=== PATIENT | female | born 2000 ===

== ENCOUNTER 2024-05-14 19:13 | Outpatient (REF) | payer OTHER, SELFPAY | END 2024-05-14 19:14 | disposition home or self-care (01) | LOC: LAB 19:13 | PROVIDERS: Visit Provider Obstetrics & Gynecology | DX: R87.610 Atypical squamous cells of undetermined significance on cytologic smear of cervix (ASC-US) (principal) | CPT/HCPCS: 88175 ==

== ENCOUNTER 2025-05-15 12:33 | Outpatient (REF) | payer OTHER, SELFPAY ==
--- OUTSIDE RECORDS SUMMARY | 2025-05-01 16:00 | XMS_ITS | Encounter Summary ---
Author Organization [facility] Address [address] [place] [address] Care Team Providers Care Superintendent Generating Plant Name Role Phone Ly Martin MD Primary Care Provider [phone] Encounter Details Date Type Department Care Team (Late st Contact Info) Description 05/01/2025 4:00 PM EDT Office Visit T[facility] 112 [facility] [address] [place] [address] Belkys Raymond, JEWEL GRINDER 112 [facility] 110 [place] [address] Attention deficit hyperactivity disorder (ADHD), combined type Social History Tobacco Use Types Packs/Day Years Used Date Smoking Tobacco: Never Smokeless Tobacco: Never Tobacco Cessation:Counseling Given: Yes Comments:Never used Alcohol Use Standard Drinks/Week Comments Yes 0 (1 standard drink = 0.6 oz pur e alcohol) Once a month or less socially B1300 Health Literacy Answer Date Recor ded How often do you need to hav e someone help you when you read instructions, pamphlets, or other written material from your doctor or pharmacy? Never 12/17/2024 Humiliation, Afraid, Rape, and Kick questionnair e Answer Date Recorded Within the last year, have y ou been afraid of your partner or ex-partner? No 09/12/2023 Within the last year, have y ou been humiliated or emotionally abused in other ways by your partner or ex-partner? No Within the last year, have y ou been kicked, hit, slapped, or otherwise physically hurt by your partner or ex-partner? No 09/12/2023 Within the last year, have y ou been raped or forced to have any kind of sexual activity by your partner or ex-partner? No 09/12/2023 Social Connection and Isolat ion Panel [NHANES] Answer Date Recorded In a typical week, how many times do you talk on the phone with family, friends, or neighbors? More than three times a week 12/17/2024 How often do you get togethe r with friends or relatives? Twice a week 12/17/2024 How often do you attend chur or synagogue services? Never 12/17/2024 Do you belong to any clubs o r organizations such as judaism groups, unions, fraternal or athletic groups, or school groups? No 12/17/2024 How often do you attend meet ings of the clubs or organizations you belong to? Never 12/17/2024 Are you , , di vorced, , never , or living with a partner? Living with partner 12/17/2024 AUDIT-C Answer Date Recorded Q1: How often do you have a drink containing alc ohol? Monthly or less 12/17/2024 Q2: How many drinks containi ng alcohol do you have on a typical day when you are drinking? 1 or 2 12/17/2024 Q3: How often do you have si x or more drinks on one occasion? Never 12/17/2024 Overall Financial Resource Strain (CARDIA) Answe r Date Recorded How hard is it for you to pa y for the very basics like food, housing, medical care, and heating? Not very hard 12/17/2024 PHQ-2 Answer Date Recorded Patient Health Questionnaire-2 Score 0 05/01/2025 [facility] [place] of Occupat ional Health - Occupational Stress Questionnaire Answer Date Recorded Do you feel stress - tense, restless, nervous, or anxious, or unable to sleep at night because your mind is troubled all the time - these days? Only a little 12/17/2024 Exercise Vital Sign Answer Date Recorde d On average, how many days pe r week do you engage in moderate to strenuous exercise (like a brisk walk)? 3 days 12/17/2024 On average, how many minutes do you engage in exercise at this level? 30 min 12/17/2024 Hunger Vital Sign Answer Date Recorded Within the past 12 months, y ou worried that your food would run out before you got the money to buy more. Sometimes true Within the past 12 months, t he food you bought just didn't last and you didn't have money to get more. Never true PRAPARE - Transportation Answer Date Re corded In the past 12 months, has l ack of transportation kept you from medical appointments or from getting medications? No 11/30 In the past 12 months, has l ack of transportation kept you from meetings, work, or from getting things needed for daily living? No 12/17/2024 Housing Stability Vital Sign Answer Keo e Recorded In the last 12 months, was t here a time when you were not able to pay the mortgage or rent on time? No 09/12/2023 In the last 12 months, how many places have you lived? 1 09/12/2023 In the last 12 months, was t here a time when you did not have a steady place to sleep or slept in a group home (including now)? No 09/12/2023 Housing Stability Vital Sign Answer Keo e Recorded In the last 12 months, was t here a time when you were not able to pay the mortgage or rent on time? No 12/17/2024 In the past 12 months, how m any times have you moved where you were living? 0 12/17/2024 At any time in the past 12 m [facility], were you homeless or living in a group home (including now)? No 12/17/2024 Comments Unknown Sex and Gender Information Value Date Recorded Sex Assigned at Not on file Legal Sex Female 7:37 PM EDT Gender Identity Female 04/26/2023 5:34 PM EDT Sexual Orientation Not on file documented as of this encounter Last Filed Vital Signs Vital Sign Reading Time Taken Comments Blood Pressure 120/72 05/01/2025 3:50 PM EDT Pulse 78 05/01/2025 3:50 PM EDT Temperature - - Respiratory Rate 16 05/01/2025 3:50 PM EDT Oxygen Saturation 99% 05/01/2025 3:50 PM EDT Inhaled Oxygen Concentration - - Weight 84.8 kg (187 lb) 05/01/2025 3:50 PM EDT Height 172.7 cm (5' 8 ) 05/01/2025 3:50 PM EDT Body Mass Index 28.43 05/01/2025 3:50 PM EDT documented in this encounter Functional Status * Over the past 2 weeks, how often have you been bothered by any of the following problems? Question Answer Date of Assessment Author Little interest or pleasure in doing things Not at all 05/01/2025 3:46 PM EDT DI DAVILA Feeling down, depressed, or hopeless Not at all 04/03 3:46 PM EDT DI DAVILA Patient Health Questionnaire-2 Score 0 04/03 3:46 PM EDT DI DAVILA documented as of this encounter Progress Notes * Belkys Raymond NP - 05/01/2025 4:00 PM EDT Images from the original note were not included. Subjective Patient ID: Ying Islas is a 24 y.o. female who presents for No chief complaint on file.. Ying presents today for a follow for her ADHD. She has no concerns at this time. Depression Visit Type: follow-up Patient presents with the following symptoms: decreased concentration. Episode frequency: medication is not holding her until she gets her next dose. Severity: causing significant distress Sleep per night: 8 hours Sleep quality: good Nighttime awakenings: one to two Compliance with medications: 76-100% Over the past 2 weeks, how often have you been bothered by any of the following problems? Little interest or pleasure in doing things: Not at all Feeling down, depressed, or hopeless: Not at all Patient Health Questionnaire-2 Score: 0 Current Outpatient Medications on File Prior to Visit Medication Sig Dispense Refill adapalene (Differin) 0.3 % gel Apply topically at bedtime 45 g 11 albuterol HFA (Ventolin HFA) 90 mcg/act inhaler Inhale 2 puffs every 4 (four) hours if needed for wheezing 18 g 11 amphetamine-dextroamphetamine (Adderall) 20 MG tablet Take 1 tablet (20 mg) by mouth in the morningand 1 tablet (20 mg) before bedtime. 60 tablet 0 buPROPion XL (Wellbutrin XL) 300 MG 24 hr tablet Take 1 tablet (300 mg) by mouth in the morning. Donot crush, chew, or split. 90 tablet 3 ferrous sulfate 325 (65 Fe) MG EC tablet Take 1 tablet (325 mg) by mouth in the morning and 1 tablet (325 mg) at noon and 1 tablet (325 mg) in the evening. Take with meals. Do not crush, chew, or split.. 90 tablet 2 hydrOXYzine HCl (Atarax) 25 MG tablet Take 1 tablet (25 mg) by mouth 3 (three) times a day as needed for anxiety 90 tablet 0 norelgestromin-ethinyl estradiol (Ortho-Evra) 150-35 MCG/24HR APPLY 1 PATCH WEEKLY FOR 3 WEEKS THENREMOVE FOR 1 WEEK 3 patch 12 No current facility-administered medications on file prior to visit. I have reviewed and reconciled the history and medication list with the patient today. Allergies Allergen Reactions Fluconazole Rash Social History Tobacco Use Smoking status: Never Smokeless tobacco: Never Tobacco comments: Never used Vaping Use Vaping status: Never Used Substance Use Topics Alcohol use: Yes Comment: Once a month or less socially Drug use: Not Currently Types: Marijuana Comment: 1/2 a year socially Family History Problem Relation Name Age of Onset Diabetes Father Ibrahima Islas Past Medical History: Diagnosis Date ADHD (attention deficit hyperactivity disorder) Allergic 2014 Anxiety 2016 Depression 2016 Menstrual migraine Past Surgical History: Procedure Laterality Date TYMPANOSTOMY TUBE PLACEMENT at age 1 Visit Vitals Smoking Status Never Review of Systems Constitutional: Negative. HENT: Negative. Eyes: Negative. Respiratory: Negative. Cardiovascular: Negative. Gastrointestinal: Negative. Genitourinary: Negative. Musculoskeletal: Negative. Skin: Negative. Neurological: Negative. Psychiatric/Behavioral: Positive for decreased concentration and depression. Decreased concentration a few hours prior to next dose All other systems reviewed and are negative. Endocrine: Negative. Objective Physical Exam Vitals reviewed. Constitutional: Appearance: Normal appearance. HENT: Head: Normocephalic. Nose: Nose normal. Mouth/Throat: Mouth: Mucous membranes are moist. Pharynx: Oropharynx is clear. Eyes: Conjunctiva/sclera: Conjunctivae normal. Cardiovascular: Rate and Rhythm: Normal rate and regular rhythm. Abdominal: General: Bowel sounds are normal. Palpations: Abdomen is soft. Skin: General: Skin is warm and dry. Neurological: General: No focal deficit present. Mental Status: She is alert and oriented to person, place, and time. Psychiatric: Mood and Affect: Mood normal. Behavior: Behavior normal. Thought Content: Thought content normal. Judgment: Judgment normal. Assessment/Plan Diagnoses and all orders for this visit: Attention deficit hyperactivity disorder (ADHD), combined type - amphetamine-dextroamphetamine (Adderall) 10 MG tablet; Take 1 tablet (10 mg) by mouth Daily Take with the 20mg tab in the am for a total of 30mg in am - amphetamine-dextroamphetamine (Adderall) 20 MG tablet; Take 1 tablet (20 mg) by mouth in the morning and 1 tablet (20 mg) before bedtime. Continue with current drug therapy. Call office for worsening of symptoms. Per [facility] regulations, follow ups have to occur every 3 months. You verbalized understanding of these rules in order for us tocontinue filling medications. OARRS/PDMP reviewed without concern. Safe filling and storage of medications discussed with patient. Controlled status of medication discussed with patient. No follow-ups on file. documented in this encounter Plan of Treatment Upcoming Encounters Date Type Department Care Team (Late st Contact Info) Description 05/19/2026 9:00 AM EDT Procedure Visit [facility] [address] [facility] [place] [address] Toni Burris DO [address] [facility] [place] [address] documented as of this encounter Visit Diagnoses Diagnosis Attention deficit hyperactivity disorder (ADHD), combined type documented in this encounter Care Teams Superintendent Generating Plant Relationship Specialty Start Date End Date Ly Martin MD [address] [facility] [address] [place] [address] PCP - General Family Medicine 02/07/23 documented as of this encounter
--- OUTSIDE RECORDS SUMMARY | 2025-05-15 09:00 | XMS_ITS | Encounter Summary ---
Author Organization [facility] Address [address] [place] [address] Care Team Providers Care Bleacher Lard Name Role Phone Ly Martin MD Primary Care Provider [phone] Reason for Visit * Reason Comments Well Women Visit Encounter Details Date Type Department Care Team (Late st Contact Info) Description 05/15/2025 9:00 AM EDT Office Visit [facility] [address] [facility] [place] [address] Toni Burris DO [address] [facility] [address] [place], [place] [id number] Well woman exam with routine gynecological exam; Atypical squamous cell changes of undetermined significance (ASCUS) on cervical cytology with negative high risk human papilloma virus (HPV) test result Social History Tobacco Use Types Packs/Day Years Used Date Smoking Tobacco: Never Smokeless Tobacco: Never Comments:Never used Alcohol Use Standard Drinks/Week Comments [...] How often do you attend chur or sabianist services? Never 12/17/2024 Do you belong to any clubs o r organizations such as shinto groups, unions, fraternal or athletic groups, or [...] Recorded Patient Health Questionnaire-2 Score 0 05/01/2025 [facility] of Occupat ional Health - Occupational Stress [...] place to sleep or slept in a senior care (including now)? No 09/12/2023 Housing Stability Vital Sign Answer Keo e Recorded In the last 12 months, was t here a time when you were not able to pay the mortgage or rent on time? No 12/17/2024 In the past 12 months, how m any times have you moved where you were living? 0 12/17/2024 At any time in the past 12 m [facility], were you homeless or living in a senior care (including now)? No 12/17/2024 Comments Unknown Sex and Gender Information Value Date Recorded Sex Assigned at Not on file Legal Sex Female 7:37 PM EDT Gender Identity Female 04/26/2023 5:34 PM EDT Sexual Orientation Not on file documented as of this encounter Last Filed Vital Signs Vital Sign Reading Time Taken Comments Blood Pressure 130/80 05/15/2025 9:08 AM EDT Pulse - - Temperature - - Respiratory Rate - - Oxygen Saturation - - Inhaled Oxygen Concentration - - Weight 84.6 kg (186 lb 6.4 oz) 05/15/2025 9:08 A M EDT Height - - Body Mass Index 28.34 05/01/2025 3:50 PM EDT documented in this encounter Progress Notes * Britt Modi LPN - 05/15/2025 9:00 AM EDT Reason for Appointment: Patient ID: Ying Islas is a 24 y.o. female who presents for [facility] Women Visit Patient presents today for Annual Exam. MEDICATIONS Current Outpatient Medications Medication Instructions adapalene (Differin) 0.3 % gel Topical, Nightly albuterol HFA (Ventolin HFA) 90 mcg/act inhaler 2 puffs, Inhalation, Every 4 hours PRN amphetamine-dextroamphetamine (Adderall) 10 MG tablet 10 mg, Oral, Daily, Take with the 20mg tab inthe am for a total of 30mg in am amphetamine-dextroamphetamine (Adderall) 20 MG tablet 20 mg, Oral, 2 times daily amphetamine-dextroamphetamine (Adderall) 20 MG tablet 20 mg, Oral, 2 times daily buPROPion XL (WELLBUTRIN XL) 300 mg, Oral, Every morning, Do not crush, chew, or split. ferrous sulfate 325 mg, Oral, 3 times daily with meals, Do not crush, chew, or split. hydrOXYzine HCl (ATARAX) 25 mg, Oral, 3 times daily PRN ALLERGIES Allergies Allergen Reactions Fluconazole Rash PROBLEMS Active Ambulatory Problems Diagnosis Date Noted Adjustment disorder with anxiety 04/24/2023 Attention deficit hyperactivity disorder 04/24/2023 Intractable menstrual migraine without status migrainosus 04/24/2023 Major depressive disorder, single episode, mild 04/24/2023 Resolved Ambulatory Problems Diagnosis Date Noted No Resolved Ambulatory Problems Past Medical History: Diagnosis Date ADHD (attention deficit hyperactivity disorder) Allergic 2013 Anxiety 2016 Depression 2016 Menstrual migraine HISTORY PAST MEDICAL HISTORY SOCIAL HISTORY Past Medical History: Diagnosis Date ADHD (attention deficit hyperactivity disorder) Allergic 2013 Anxiety 2016 Depression 2016 Menstrual migraine Social History Tobacco Use Smoking status: Never Smokeless tobacco: Never Tobacco comments: Never used Vaping Use Vaping status: Never Used Substance Use Topics Alcohol use: Yes Comment: Once a month or less socially Drug use: Not Currently Types: Marijuana Comment: 1/2 a year socially FAMILY HISTORY Family History Problem Relation Name Age of Onset Diabetes Father Ibrahima Islas SURGICAL HISTORY Past Surgical History: Procedure Laterality Date TYMPANOSTOMY TUBE PLACEMENT at age 1 REVIEW OF SYSTEMS Review of Systems: Review of Systems Constitutional: Negative. HENT: Negative. Eyes: Negative. Respiratory: Negative. Cardiovascular: Negative. Gastrointestinal: Negative. Genitourinary: Negative. Musculoskeletal: Negative. Skin: Negative. Neurological: Negative. All other systems reviewed and are negative. Hematological: Negative. Endocrine: Negative. Allergic/Immunologic: Negative. OBJECTIVE Objective: Physical Exam Constitutional: Appearance: Normal appearance. She is well-developed. Genitourinary: Vulva normal. Cardiovascular: Rate and Rhythm: Normal rate and regular rhythm. Pulmonary: Effort: Pulmonary effort is normal. Breath sounds: Normal breath sounds. Abdominal: General: Bowel sounds are normal. There is no distension. Palpations: Abdomen is soft. Tenderness: There is no abdominal tenderness. There is no guarding or rebound. Musculoskeletal: General: No swelling. Normal range of motion. Right lower leg: No edema. Left lower leg: No edema. Neurological: Mental Status: She is alert and oriented to person, place, and time. Skin: General: Skin is warm and dry. Psychiatric: Mood and Affect: Mood normal. Behavior: Behavior normal. Vitals and nursing note reviewed. Exam conducted with a software specialist present. Vitals: Estimated body mass index is 28.34 kg/m?? as calculated from the following: Height as of 05/01/25: 5' 8 . Weight as of this encounter: 186 lb 6.4 oz. BP: 130/80 Patient's last menstrual period was 05/11/2025. ASSESSMENT & PLAN ICD-10-CM 1. Well woman exam with routine gynecological exam Z01.419 Pap Smear Annual Exam: Patient presents today for an annual exam. Patient states she is doing well and has no complaints. Pap was obtained without difficulty. Patient has history of abnormal Pap Smears. Follow Up: Patient is to return in one year for annual unless needed otherwise. Documented by Britt Modi LPN on behalf of: Toni Burris DO documented in this encounter Plan of Treatment Upcoming Encounters Date Type Department Care Team (Late st Contact Info) Description 05/19/2026 9:00 AM EDT Procedure Visit [facility] [address] [facility] [place] [address] Toni Burris DO [address] [place] [address] Scheduled Orders Name Type Priority Associated Diagnoses Orde r Schedule Pap Smear Pathology and Cytology Routine Well woman exam with routine gynecological exam Ordered: 05/15/2025 documented as of this encounter Visit Diagnoses Diagnosis Well woman exam with routine gynecological exam Routine gynecological examination Atypical squamous cell changes of undetermined significance (ASCUS) on cervical cytology with negative high risk human papilloma virus (HPV) test result documented in this encounter Care Teams Bleacher Lard Relationship Specialty Start Date End Date Ly Martin MD [address] [facility] 110 [place] [address] PCP - General Family Medicine 02/07/23 documented as of this encounter
--- OUTSIDE RECORDS SUMMARY | 2025-05-15 12:35 | XMS_ITS | Encounter Summary ---
Author Organization [facility] Address [address] [place] [address] Care Team Providers Care Upholstered Goods Crafter Name Role Phone Ly Martin MD Primary Care Provider Encounter Details Date Type Department Care Team (Late st Contact Info) Description 05/01/2025 Bamboo flowsheet [facility] [address] [facility] 110 [place] [address] Belkys Raymond, ART MUSEUM DOCENT [address] [facility] 110 [place] [address] Social History Tobacco Use Types Packs/Day Years [...] 12/17/2024 How often do you attend chur ch or mosque services? Never 12/17/2024 Do you belong to any clubs o r organizations such as buddhism groups, unions, fraternal or athletic groups, or [...] Recorded Patient Health Questionnaire-2 Score 0 05/01/2025 [facility] of Occupat ional Health - Occupational Stress [...] place to sleep or slept in a [place] care facility (including now)? No 09/12/2023 Housing Stability Vital Sign Answer Keo e Recorded In the last 12 months, was t here a time when you were not able to pay the mortgage or rent on time? No 12/17/2024 In the past 12 months, how m any times have you moved where you were living? 0 12/17/2024 At any time in the past 12 m [facility], were you homeless or living in a [place] health care facility (including now)? No 12/17/2024 Comments Unknown Sex and Gender Information Value Date Recorded Sex Assigned at Not on file Legal Sex Female 7:37 PM EDT Gender Identity Female 04/26/2023 5:34 PM EDT Sexual Orientation Not on file documented as of this encounter Plan of Treatment Upcoming Encounters Date Type Department Care Team (Late st Contact Info) Description 05/19/2026 9:00 AM EDT Procedure Visit [facility] [address] [place] [id number] Toni Burris DO [address] [place] [address] documented as of this encounter Visit Diagnoses Not on filedocumented in this encounter Care Teams Upholstered Goods Crafter Relationship Specialty Start Date End Date Ly Martin MD [address] [facility] 110 [place] [address] PCP - General Family Medicine 02/07/23 documented as of this encounter
--- OUTSIDE RECORDS SUMMARY | 2025-05-15 12:35 | XMS_ITS | Encounter Summary ---
Author Organization [facility] Address [address] [facility] [place] [address] Care Team Providers Care Check Airman Name Role Phone Ly Martin MD Primary Care Provider [phone] Encounter Details Date Type Department Care Team (Late st Contact Info) Description 05/15/2025 Bamboo flowsheet [facility] [address] [facility] [place] [address] Toni Burris DO [address] [facility] [address] [place], [facility] Social History Tobacco Use Types Packs/Day Years [...] How often do you attend chur or cheondoism services? Never 12/17/2024 Do you belong to any clubs o r organizations such as worship groups, unions, fraAurochs Brewing or athletic groups, or school groups? No [...] Recorded Patient Health Questionnaire-2 Score 0 05/01/2025 [facility] - Occupational Stress Questionnaire Answer [...] place to sleep or slept in a care home (including now)? No 09/12/2023 Housing Stability [...] any time in the past 12 m [facility], were you homeless or living in a care home (including now)? No 12/17/2024 Comments Unknown [...] EDT Procedure Visit [facility] [address] [place] [address] Toni Burris DO [address] [place] [address] documented as of this encounter Visit Diagnoses Not on filedocumented in this encounter Care Teams Check Airman Relationship Specialty Start Date End Date Ly Martin MD 112 [facility] 110 [place] [address] PCP - General Family Medicine 02/07/23 documented as of this encounter
--- OUTSIDE RECORDS SUMMARY | 2025-05-15 12:35 | XMS_ITS | Encounter Summary ---
Author Organization [facility] Address [address] [place] [address] Care Team Providers Care Auto Apprentice Mechanic Name Role Phone Ly Martin MD Primary Care Provider [phone] Encounter Details Date Type Department Care Team (Late st Contact Info) Description 12/07/2023 Abstract [facility] [address] [facility] 110 [place] [address] Ly Martin MD 112 [facility] 110 [place] [address] Social History Tobacco Use Types Packs/Day Years Used Date Smoking Tobacco: Never Smokeless Tobacco: Never Alcohol Use Standard Drinks/Week Comments Never 0 (1 standard drink = 0.6 oz pur e alcohol) Humiliation, Afraid, Rape, and Kick questionnair e [...] neighbors? More than three times a week 09/12/2023 How often do you get togethe r with friends or relatives? Once a week 09/12/2023 Attends Amish Services Not on file 09/12 Do you belong to any clubs o r organizations such as cheondoism groups, unions, fraternal or athletic groups, or school groups? No 09/12/2023 How often do you attend meet ings of the clubs or organizations you belong to? Never 09/12/2023 Are you , , di vorced, , never , or living with a partner? Never 09/12/2023 AUDIT-C Answer Date Recorded Q1: How often do you have a drink containing alc ohol? Monthly or less 09/12/2023 Q2: How many drinks containi ng alcohol do you have on a typical day when you are drinking? 1 or 2 09/12/2023 Q3: How often do you have si x or more drinks on one occasion? Never 09/12/2023 Overall Financial Resource Strain (CARDIA) Answe r Date Recorded How hard is it for you to pa y for the very basics like food, housing, medical care, and heating? Not very hard 09/12/2023 PHQ-2 Answer Date Recorded Patient Health Questionnaire-2 Score 2 04/24/2023 [facility] - [facility]ational Stress Questionnaire Answer Date Recorded Do you feel stress - tense, restless, nervous, or anxious, or unable to sleep at night because your mind is troubled all the time - these days? Very much 09/12/2023 Exercise Vital Sign Answer Date Recorde d On average, how many days pe r week do you engage in moderate to strenuous exercise (like a brisk walk)? 1 day 09/12/2023 On average, how many minutes do you engage in exercise at this level? 50 min 09/12/2023 Hunger Vital Sign Answer Date Recorded Within the past 12 months, y ou worried that your food would run out before you got the money to buy more. Never true 09/12/20 23 Within the past 12 months, t he food you bought just didn't last and you didn't have money to get more. Never true 09/12/2023 PRAPARE - Transportation Answer Date Re corded In the past 12 months, has l ack of transportation kept you from medical appointments or from getting medications? No 09/01 In the past 12 months, has l ack of transportation kept you from meetings, work, or from getting things needed for daily living? No 09/12/2023 Housing Stability Vital Sign Answer [...] place to sleep or slept in a nursing home (including now)? No 09/12/2023 Comments Unknown Sex and Gender Information Value Date Recorded Sex Assigned at Not on file Legal Sex Female 7:37 PM EDT Gender Identity Female 04/26/2023 5:34 PM EDT Sexual Orientation Not on file documented as of this encounter Plan of Treatment Upcoming Encounters Date Type Department Care Team (Late st Contact Info) Description 05/19/2026 9:00 AM EDT Procedure Visit [facility] [address] [place] [address] Toni Burris DO [address] [facility] [place] [address] documented as of this encounter Visit Diagnoses Not on filedocumented in this encounter Care Teams Auto Apprentice Mechanic Relationship Specialty Start Date End Date Ly Martin MD [address] [facility] 110 [place] [address] PCP - General Family Medicine 02/07/23 documented as of this encounter
--- OUTSIDE RECORDS SUMMARY | 2025-05-15 12:35 | XMS_ITS | Clinical Summary ---
Author Organization [facility] Address [address] [place] [address] Care Team Providers Care Motor Grader Operator Name Role Phone Ly Martin MD Primary Care Provider [phone] Allergies Active Allergy Reactions Criticality Noted Date Comments Fluconazole Rash Low 04/24/2023 Medications ferrous sulfate 325 (65 Fe) MG EC tabletIndication s:Screening for lipid disorders Take 1 tablet (325 mg) by mouth in the morning and 1 tablet (325 mg) at noon and 1 tablet (325 mg) in the evening. Take with meals. Do not crush, chew, or split.. 90 tablet 2 12/04/19 24 Active hydrOXYzine HCl (Atarax) 25 MG tabletIndication s:Adjustment disorder with anxiety Take 1 tablet (25 mg) by mouth 3 (three) times a day as needed for anxiety 90 tablet 11/01/19 25 Active adapalene (Differin) 0.3 % gelIndications:A cne vulgaris Apply topically at bedtime 45 g 11 11/20/19 25 026 Active albuterol HFA (Ventolin HFA) 90 mcg/act inhalerIndicatio ns:Exercise-vani fidel asthma (HCC) Inhale 2 puffs every 4 (four) hours if needed for wheezing 18 g 11 12/13/19 25 026 Active buPROPion XL (Wellbutrin XL) 300 MG 24 hr tabletIndication s:Major depressive disorder, single episode, mild Take 1 tablet (300 mg) by mouth in the morning. Do not crush, chew, or split. 90 tablet 3 03/17/20 25 026 Active amphetamine-dext roamphetamine (Adderall) 20 MG tabletIndication s:Attention deficit hyperactivity disorder (ADHD), combined type Take 1 tablet (20 mg) by mouth in the morning and 1 tablet (20 mg) before bedtime. 60 tablet 05/02/20 25 025 Active amphetamine-dext roamphetamine (Adderall) 10 MG tabletIndication s:Attention deficit hyperactivity disorder (ADHD), combined type Take 1 tablet (10 mg) by mouth Daily Take with the 20mg tab in the am for a total of 30mg in am 30 tablet 05/01/20 25 025 Active amphetamine-dext roamphetamine (Adderall) 20 MG tabletIndication s:Attention deficit hyperactivity disorder (ADHD), combined type Take 1 tablet (20 mg) by mouth in the morning and 1 tablet (20 mg) before bedtime. 60 tablet 05/01/20 25 025 Active norelgestromin-e thinyl estradiol (Ortho-Evra) 150-35 MCG/24HRIndicati ons: control counseling APPLY 1 PATCH WEEKLY FOR 3 WEEKS THEN REMOVE FOR 1 WEEK 3 patch 12 12/26/19 25 025 Discontinued amphetamine-dext roamphetamine (Adderall) 20 MG tabletIndication s:Attention deficit hyperactivity disorder (ADHD), combined type Take 1 tablet (20 mg) by mouth in the morning and 1 tablet (20 mg) before bedtime. 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 04/24/2023 Major depressive disorder, single episode, mild 04/24/2023 Assessment & Plan (02/05/2024 3:13 PM EDT): Decrease to 50mg every days for 7 days, then every other 3-4 doses Encounters Date Type Department Care Team Description 05/15/2025 9:00 AM EDT Office Visit [facility] [address] [place] [address] Toni Burris DO Well woman exam with routine gynecological exam; Atypical squamous cell changes of undetermined significance (ASCUS) on cervical cytology with negative high risk human papilloma virus (HPV) test result 05/15/2025 Bamboo flowsheet [facility] [address] [place] [address] Toni Burris DO 05/10/2025 Travel 05/01/2025 4:00 PM EDT Office Visit [facility] [address] [place] [address] [place] [address] Belkys Raymond, SENIOR PROCESS ANALYST Attention deficit hyperactivity disorder (ADHD), combined type 05/01/2025 Refill [facility] [address] [place] [address] [place] [address] Belkys Raymond, SENIOR PROCESS ANALYST Attention deficit hyperactivity disorder (ADHD), combined type 05/01/2025 Bamboo flowsheet [facility] [address] [place] [address] [place] [address] Belkys Raymond, SENIOR PROCESS ANALYST 05/01/2025 Travel 04/03/2025 Refill [facility] [address] [place] [address] [place] [address] Julia Dominguez, PA Attention deficit hyperactivity disorder (ADHD), combined type 03/17/2025 Orders Only [facility] [facility] [address] [place] [address] [place] [address] Belkys Raymond, SENIOR PROCESS ANALYST Major depressive disorder, single episode, mild (Primary Dx) 03/06/2025 Refill [facility] [facility] [address] [place] [address] [place] [address] Belkys Raymond, SENIOR PROCESS ANALYST Attention deficit hyperactivity disorder (ADHD), combined type from Last 3 Months Immunizations Immunization Administration Dates Next Due DTaP 06/16/2004, 0,1999,08/16 DTaP, Unspecified 09/18/2001 Hep B, Adolescent or Pediatric 06/23/2000,1999 Hep B, adult 05/19/2017 HiB, unspecified 01/17/2000,1999, 9 Hib / Hep B 09/18/2001 IPV 06/16/2004, 0,1999,08/16 Influenza, Injectable, MDCK, preservative free 10/13/2024 Influenza, injectable, MDCK, preservative free, quadrivalent 10/01/2021 Edwige SARS-CoV-2 02/04/2021 MMR 06/16/2004,08/07/2000 Meningococcal MCV4O 05/19/2017 Pfizer Purple Cap SARS-CoV-2 Vaccination 10/14/2021 Pneumococcal Conjugate PCV 7 08/07/2000,06/22/20 00 Varicella 06/22/2000 Family History Medical History Relation Name Comments Diabetes Father Ibrahima Islas Relation Name Status Comments Father Ibrahima Islas Alive Mother Alive Social History Tobacco Use Types Packs/Day Years [...] How often do you attend chur or jew services? Never 12/17/2024 Do you belong to any clubs o r organizations such as yazidism groups, unions, fraternal or athletic groups, or [...] Recorded Patient Health Questionnaire-2 Score 0 05/01/2025 [facility] [place] of Occupat ional Health - Occupational Stress [...] to sleep or slept in a senior living (including now)? No 09/12/2023 Housing Stability Vital Sign Answer Keo e Recorded In the last 12 months, was t here a time when you were not able to pay the mortgage or rent on time? No 12/17/2024 In the past 12 months, how m any times have you moved where you were living? 0 12/17/2024 At any time in the past 12 m [facility], were you homeless or living in a senior living (including now)? No 12/17/2024 Comments Unknown Sex and Gender Information Value Date Recorded Sex Assigned at Not on file Legal Sex Female 7:37 PM EDT Gender Identity Female 04/26/2023 5:34 PM EDT Sexual Orientation Not on file Last Filed Vital Signs Vital Sign Reading Time Taken Comments Blood Pressure 130/80 05/15/2025 9:08 AM EDT Pulse 78 05/01/2025 3:50 PM EDT Temperature - - Respiratory Rate 16 05/01/2025 3:50 PM EDT Oxygen Saturation 99% 05/01/2025 3:50 PM EDT Inhaled Oxygen Concentration - - Weight 84.6 kg (186 lb 6.4 oz) 05/15/2025 9:08 A M EDT Height 172.7 cm (5' 8 ) 05/01/2025 3:50 PM EDT Body Mass Index 28.34 05/01/2025 3:50 PM EDT Plan of Treatment Upcoming Encounters Date Type Department Care Team (Late st Contact Info) Description 05/19/2026 9:00 AM EDT Procedure Visit [facility] [address] [facility] [place] [address] Toni Burris DO [address] [facility] [place] [address] Health Maintenance Due Date Last Done Comments Influenza Vaccine (#1) 2025 10/13/2024, 2020 Insurance [employer] Care Teams Motor Grader Operator Relationship Specialty Start Date End Date Ly Martin MD 112 [facility] 110 [place], [place] [id number] PCP - General Family Medicine 02/07/23
--- OUTSIDE RECORDS SUMMARY | 2025-05-15 12:35 | XMS_ITS | Encounter Summary ---
Author Organization [facility] Address [address] [place] [address] Care Team Providers Care Manager Architectural Name Role Phone Ly Martin MD Primary Care Provider Encounter Details Date Type Department Care Team (Late st Contact Info) Description 05/22/2024 Orders Only [facility] [address] [facility] [address] Vale Chaudhary MA [address] [facility] [place] [address] Social History Tobacco Use Types Packs/Day Years Used Date Smoking Tobacco: Never Smokeless Tobacco: Never Comments:Never used Alcohol Use Standard Drinks/Week Comments Yes 0 (1 standard drink = 0.6 oz pur e alcohol) Once a month or less socially Humiliation, Afraid, Rape, and Kick questionnair e [...] or relatives? Once a week 09/12/2023 Attends Oriental Orthodox Services Not on file 09/12 Do you belong to any clubs o r organizations such as baptism groups, unions, fraternal or athletic groups, or [...] Recorded Patient Health Questionnaire-2 Score 2 04/24/2023 [facility] Questionnaire Answer Date [...] place to sleep or slept in a chcf (including now)? No 09/12/2023 Comments Unknown Sex [...] EDT Procedure Visit [facility] [address] [facility] [place] [phone] Toni Burris DO [address] [facility] [address] [place], [place] [id number] documented as of this encounter Procedures Procedure Name Priority Date/Time Associated Diagnosis Comments PAP SMEAR Routine 05/14/2024 12:00 AM EDT documented in this encounter Results * Pap Smear (05/14/2024 12:00 AM EDT) Swab Cervical swab / Unknown Toni Burris DO LAB CYTOLOGY ORDERABLES Final Re sult EXTERNAL LAB documented in this encounter Visit Diagnoses Not on filedocumented in this encounter Care Teams Manager Architectural Relationship Specialty Start Date End Date Ly Martin MD [address] [place] [address] 110 [place] [address] PCP - General Family Medicine 02/07/23 documented as of this encounter
--- OUTSIDE RECORDS SUMMARY | 2025-05-15 12:35 | XMS_ITS | Encounter Summary ---
Author Organization [facility] Address [address] [place] [address] Care Team Providers Care Wool Puller Name Role Phone Ly Martin MD Primary Care Provider [phone] Encounter Details Date Type Department Care Team (Latest Contact Info) Description 05/10/2025 Travel Social History Tobacco Use Types Packs/Day Years [...] often do you attend chur ch or alevism services? Never 12/17/2024 Do you belong to any clubs o r organizations such as restorationism groups, unions, fraternal or athletic groups, or [...] Recorded Patient Health Questionnaire-2 Score 0 05/01/2025 [facility] of Occupat ional Health - Occupational Stress [...] any time in the past 12 m [facility], were you homeless or living in a [...] EDT Procedure Visit [facility] [address] [facility] [place] [address] Toni Burris DO 102 [place] [address] documented as of this encounter Visit Diagnoses Not on filedocumented in this encounter Care Teams Wool Puller Relationship Specialty Start Date End Date Ly Martin MD [address] [address] PCP - General Family Medicine 02/07/23 documented as of this encounter
--- OUTSIDE RECORDS SUMMARY | 2025-05-15 12:35 | XMS_ITS | Encounter Summary ---
Author Organization [facility] Address [address] [place] [address] Care Team Providers Care Captain Assistant Name Role Phone Ly Martin MD Primary Care Provider [phone] Encounter Details Date Type Department Care Team (Late st Contact Info) Description 12/18/2024 Abstract [facility] [address] [facility] 110 [place] [address] Ly Martin MD 112 [facility] 110 [place] [address] Social History Tobacco Use Types Packs/Day Years [...] often do you attend chur ch or yarsani services? Never 12/17/2024 Do you belong to any clubs o r organizations such as christianity groups, unions, fraternal or athletic groups, or [...] Recorded Patient Health Questionnaire-2 Score 2 04/24/2023 [facility] of Occupat ional Health - Occupational Stress [...] place to sleep or slept in a fdc (including now)? No 09/12/2023 Housing Stability Vital Sign Answer Keo e Recorded In the last 12 months, was t here a time when you were not able to pay the mortgage or rent on time? No 12/17/2024 In the past 12 months, how m any times have you moved where you were living? 0 12/17/2024 At any time in the past 12 m [facility], were you homeless or living in a fdc (including now)? No 12/17/2024 Comments Unknown Sex [...] EDT Procedure Visit [facility] [address] [facility] [place] [phone] Toni Burris DO [address] [facility] [place] [address] documented as of this encounter Visit Diagnoses Not on filedocumented in this encounter Care Teams Captain Assistant Relationship Specialty Start Date End Date Ly Martin MD 112 [facility] 110 [place] [address] PCP - General Family Medicine 02/07/23 documented as of this encounter
--- OUTSIDE RECORDS SUMMARY | 2025-05-15 12:35 | XMS_ITS | Encounter Summary ---
Author Organization [facility] Address [address] [place] [address] Care Team Providers Care Automobile Service Station Mechanic Name Role Phone Ly Martin MD Primary Care Provider [phone] Reason for Visit * Reason Onset Date Comments Med Refill 05/01/2025 Encounter Details Date Type Department Care Team (Late st Contact Info) Description 05/01/2025 Refill [facility] [address] [facility] 110 [place] [address] Belkys Raymond, TRACTOR DRILL OPERATOR [address] [facility] 110 [place] [address] Attention deficit hyperactivity disorder (ADHD), combined type [...] How often do you attend chur or judaism services? Never 12/17/2024 Do you belong to any clubs o r organizations such as jainism groups, unions, fraternal or athletic groups, or [...] Recorded Patient Health Questionnaire-2 Score 0 05/01/2025 [facility] [place] of Occupat ional Health - Occupational Stress [...] place to sleep or slept in a detention (including now)? No 09/12/2023 Housing Stability Vital Sign Answer Keo e Recorded In the last 12 months, was t here a time when you were not able to pay the mortgage or rent on time? No 12/17/2024 In the past 12 months, how m any times have you moved where you were living? 0 12/17/2024 At any time in the past 12 m [facility], were you homeless or living in a detention (including now)? No 12/17/2024 Comments Unknown Sex and Gender Information Value Date Recorded Sex Assigned at Not on file Legal Sex Female 7:37 PM EDT Gender Identity Female 04/26/2023 5:34 PM EDT Sexual Orientation Not on file documented as of this encounter Functional Status * Over the [...] DI DAVILA documented as of this encounter Miscellaneous Notes * Telephone Encounter - MRAY Jordan - 05/02/2025 9:50 AM EDT OARRS reviewed, Rx sent into patient's pharmacy. documented in this encounter Plan of Treatment Upcoming Encounters Date Type Department Care Team (Late st Contact Info) Description 05/19/2026 9:00 AM EDT Procedure Visit [facility] [address] [place] [address] Toni Burris DO 102 [place] [address] documented as of this encounter Visit Diagnoses Diagnosis Attention deficit hyperactivity disorder (ADHD), combined type documented in this encounter Care Teams Automobile Service Station Mechanic Relationship Specialty Start Date End Date Ly Martin MD [address] [facility] 110 [place] [address] PCP - General Family Medicine 02/07/23 documented as of this encounter
--- OUTSIDE RECORDS SUMMARY | 2025-05-15 12:36 | XMS_ITS | Encounter Summary ---
Author Organization [facility] Address [address] [place] [address] Care Team Providers Care Sponge Maker Name Role Phone Ly Martin MD Primary Care Provider [phone] Encounter Details Date Type Department Care Team (Latest Contact Info) Description 05/01/2025 Travel Social History Tobacco Use Types Packs/Day [...] any clubs o r organizations such as jain groups, unions, fraternal or athletic groups, or [...] Recorded Patient Health Questionnaire-2 Score 0 05/01/2025 [facility] of Occupat ional Health - Occupational Stress [...] any time in the past 12 m [facility], were you homeless or living [...] DI DAVILA documented as of this encounter Plan of Treatment Upcoming Encounters Date Type Department Care Team (Late st Contact Info) Description 05/19/2026 9:00 AM EDT Procedure Visit [facility] [address] [facility] [place] [address] Toni Burris DO [address] [facility] [place] [address] documented as of this encounter Visit Diagnoses Not on filedocumented in this encounter Care Teams Sponge Maker Relationship Specialty Start Date End Date Ly Martin MD [address] [place] [address] 110 [place] [address] PCP - General Family Medicine 02/07/23 documented as of this encounter
--- OUTSIDE RECORDS SUMMARY | 2025-05-15 12:36 | XMS_ITS | Encounter Summary ---
Author Organization [facility] Address [address] [place] [address] Care Team Providers Care Boat Loader Helper Name Role Phone Ly Martin MD Primary Care Provider [phone] Encounter Details Date Type Department Care Team (Late st Contact Info) Description 09/20/2023 Orders Only [facility] [address] [place] [address] [place] [address] A, Unknown Practice [address] [place] [id number] Social History Tobacco Use Types Packs/Day Years [...] or relatives? Once a week 09/12/2023 Attends [employer] Services Not on file 09/12 Do you belong to any clubs o r organizations such as restorationist groups, unions, fraternal or athletic groups, or [...] Recorded Patient Health Questionnaire-2 Score 2 04/24/2023 [facility] of Occupat ional Health - [...] place to sleep or slept in a mcfp (including now)? No 09/12/2023 Comments Unknown Sex [...] EDT Procedure Visit [facility] [address] [place] [address] Toni Burris DO [address] [facility] [place] [address] documented as of this encounter Procedures Procedure Name Priority Date/Time Associated Diagnosis Comments SCANNED LABS Routine 09/20/2023 1:16 PM EST documented in this encounter Results * SCANNED LABS (09/20/2023 1:16 PM EST) us Unknown Practice A LAB CHG PERFORMABLES Final Re sult documented in this encounter Visit Diagnoses Not on filedocumented in this encounter Care Teams Boat Loader Helper Relationship Specialty Start Date End Date Ly Martin MD 112 [facility] 110 [place] [address] PCP - General Family Medicine 02/07/23 documented as of this encounter
--- OUTSIDE RECORDS SUMMARY | 2025-05-15 12:36 | XMS_ITS | Encounter Summary ---
Author Organization [facility] Address [address] [place] [address] Care Team Providers Care Principal Architect Name Role Phone Ly Martin MD Primary Care Provider [phone] Reason for Visit * Reason Onset Date Comments Med Refill 04/25/2024 Encounter Details Date Type Department Care Team (Late st Contact Info) Description 04/25/2024 Refill [facility] [address] [facility] [address] [place] [id number] Julia Dominguez PA [address] [facility] [address] [place] [address] Attention deficit hyperactivity disorder (ADHD), combined type [...] or relatives? Once a week 09/12/2023 Attends Religion Services Not on file 09/12 Do you belong to any clubs o r organizations such as caodaism groups, unions, fraternal or athletic groups, or [...] Recorded Patient Health Questionnaire-2 Score 2 04/24/2023 [facility] - Occupational Stress Questionnaire Answer Date [...] a senior care (including now)? No 09/12/2023 Comments Unknown Sex and Gender Information Value Date Recorded Sex Assigned at Not on file Legal Sex Female 7:37 PM EDT Gender Identity Female 04/26/2023 5:34 PM EDT Sexual Orientation Not on file documented as of this encounter Miscellaneous Notes * Telephone Encounter - Joan Combs - 04/29/2024 3:39 PM EDT LVM * Telephone Encounter - Joan Combs - 04/25/2024 4:25 PM EDT LVM * Telephone Encounter - MARY Jordan - 04/25/2024 3:37 PM EDT OARRS reviewed, Rx sent into patient's pharmacy. Please help pt get set up for a controlled medication follow up with Dr. Martin the first part of May. documented in this encounter Plan of Treatment Upcoming Encounters Date Type Department Care Team (Late st Contact Info) Description 05/19/2026 9:00 AM EDT Procedure Visit [facility] [address] [facility] [place] [address] Toni Burris DO [address] [facility] [place] [address] documented as of this encounter Visit Diagnoses Diagnosis Attention deficit hyperactivity disorder (ADHD), combined type documented in this encounter Care Teams Principal Architect Relationship Specialty Start Date End Date Ly Martin MD 112 [facility] [address] [place] [address] PCP - General Family Medicine 02/07/23 documented as of this encounter
--- OUTSIDE RECORDS SUMMARY | 2025-05-15 12:36 | XMS_ITS | Encounter Summary ---
Author Organization [facility] Address [address] [place] [address] Care Team Providers Care Tissue Coordinator Name Role Phone Ly Martin MD Primary Care Provider [phone] Encounter Details Date Type Department Care Team (Late Contact Info) Description 06/21/2023 Abstract [facility] [address] [facility] [address] [place] [address] Ly Martin MD 112 [facility] [address] [place] [address] Social History Tobacco Use Types Packs/Day Years Used Date Smoking Tobacco: Never Smokeless Tobacco: Never Alcohol Use Standard Drinks/Week Comments Never 0 (1 standard drink = 0.6 oz pur e alcohol) PHQ-2 Answer Date Recorded Patient Health Questionnaire-2 Score 2 04/24/2023 Comments Unknown Sex and Gender Information Value Date Recorded Sex Assigned at Not on file Legal Sex Female 7:37 PM EDT Gender Identity Female 04/26/2023 5:34 PM EDT Sexual Orientation Not on file documented as of this encounter Plan of Treatment Upcoming Encounters Date Type Department Care Team (Late st Contact Info) Description 05/19/2026 9:00 AM EDT Procedure Visit [facility] [address] [place] [address] Toni Burris DO [address] [place] [address] documented as of this encounter Visit Diagnoses Not on filedocumented in this encounter Care Teams Tissue Coordinator Relationship Specialty Start Date End Date Ly Martin MD 112 [facility] [address] [place] [address] PCP - General Family Medicine 02/07/23 documented as of this encounter
--- OUTSIDE RECORDS SUMMARY | 2025-05-15 12:42 | XMS_ITS | CCD ---
Author Organization [facility] Care Team Providers Care Pediatric Oncology Nurse Name Role Phone Ly Martin MD Primary Care Provider Allergies Allergy Classification Reported Allergen(s) Allergy Type Date of Onset Reaction(s) Facility (20 sources) Fluconazole Allergy to substance 04-24-2023 Rash [facility] Medications Current Medications Medication Drug Class(es) Dates Sig (Normalized) Sig (Original) adapalene 0.003 mg/mg topical gel (14 sources) Retinoid Start: 11-20-2024 End: 11-20-2025 adapalene (Differin) 0.3 % gel Indications: Acne vulgaris Apply topically at bedtime 45 g 11 11/20/2024 11/20/2025 Active [id number] 200 actuat albuterol 0.09 mg/actuat metered dose inhaler (12 sources) beta2-Adrenergi c Agonist Start: 12-12-2024 End: 12-12-2025 take 2 puff(s) by inhalation every four hours for wheezing albuterol HFA (Ventolin HFA) 90 mcg/act inhaler Indications: Exercise-induced asthma (HCC) Inhale 2 puffs every 4 (four) hours if needed for wheezing 18 g 11 12/12/2024 12/12/2025 Active amphetamine aspartate 2.5 mg / amphetamine sulfate 2.5 mg / dextroamphetamine saccharate 2.5 mg / dextroamphetamine sulfate 2.5 mg oral tablet (20 sources) Central Nervous System Stimulant Start: 05-01-2025 End: 05-31-2025 take 1 tablet by mouth once daily in the morning amphetamine-dextro amphetamine (Adderall) 10 MG tablet Indications: Attention deficit hyperactivity disorder (ADHD), combined type Take 1 tablet (10 mg) by mouth Daily Take with the 20mg tab in the am for a total of 30mg in am 30 tablet 05/01/2025 05/31/2025 Active Start: 01-27-2025 End: 06-01-2025 take 1 tablet by mouth in the morning amphetamine-dextroamphetamine (Adderall) 20 MG tablet Indications: Attention deficit hyperactivity disorder (ADHD), combined type Take 1 tablet (20 mg) by mouth in the morning and 1 tablet (20 mg) before bedtime. 60 tablet 05/01/2025 05/31/2025 Active Start: 05-31-2024 End: 12-20-2024 take 1 tablet by mouth in the morning amphetamine-dextroamphetamine (Adderall) 20 MG tablet Indications: Attention deficit hyperactivity disorder (ADHD), combined type (CMS/HCC) Take 1 tablet (20 mg) by mouth in the morning and 1 tablet (20 mg) before bedtime. 60 tablet 11/20/2024 12/20/2024 Active Start: 04-25-2024 End: 05-27-2024 take 1 tablet by mouth in the morning amphetamine-dextroamphetamine (Adderall) 20 MG tablet Indications: Attention deficit hyperactivity disorder (ADHD), combined type (CMS/HCC) Take 1 tablet (20 mg) by mouth in the morning and 1 tablet (20 mg) before bedtime. 60 tablet 04/25/2024 05/27/2024 Discontinued (Reorder) Start: 10-31-2023 End: 11-30-2023 take 1 tablet by mouth in the morning amphetamine-dextroamphetamine (Adderall) 20 MG tablet Indications: Attention deficit hyperactivity disorder (ADHD), combined type (CMS/HCC) Take 1 tablet (20 mg) by mouth in the morning and 1 tablet (20 mg) before bedtime. 60 tablet 0 10/31/2023 11/30/2023 Active 24 hr buPROPion hydrochloride 300 mg extended release oral tablet (20 sources) Aminoketone Start: 03-17-2025 End: 03-17-2026 take 1 tablet by mouth every twenty-four hours in the morning buPROPion XL (Wellbutrin XL) 300 MG 24 hr tablet Indications: Major depressive disorder, single episode, mild Take 1 tablet (300 mg) by mouth in the morning. Do not crush, chew, or split. 90 tablet 3 03/17/2025 03/17/2026 Active Start: 07-31-2024 End: 07-31-2025 take 1 tablet by mouth once daily buPROPion XL (Wellbutrin XL) 300 MG 24 hr tablet Indications: Major depressive disorder, single episode, mild (HCC) (CMS/HCC) Take 1 tablet (300 mg) by mouth Daily Do not crush, chew, or split. 90 tablet 3 07/31/2024 07/31/2025 Active Start: 05-06-2024 End: 05-06-2025 take 1 tablet by mouth once daily buPROPion XL (Wellbutrin XL) 150 MG 24 hr tablet Indications: Major depressive disorder, single episode, mild (HCC) (CMS/HCC) Take 1 tablet (150 mg) by mouth Daily Do not crush, chew, or split. 30 tablet 11 05/06/2024 07/31/2024 Discontinued ferrous sulfate 325 mg delay ed release oral tablet (20 sources) Start: 12-04-2023 ferrous sulfat e 325 (65 Fe) MG EC tablet Indications: Screening for lipid disorders Take 1 tablet (325 mg) by mouth in the morning and 1 tablet (325 mg) at noon and 1 tablet (325 mg) in the evening. Take with meals. Do not crush, chew, or split.. 90 tablet 2 12/04/2023 Active ferrous sulfate 325 (65 Fe) MG EC tablet Take 325 mg by mouth in the morning and 325 mg at noon and 325 mg in the evening. Take with meals. Do not crush, chew, or split.. 0 Active hydrOXYzine hydrochloride 25 mg oral tablet (14 sources) Antihistamine Start: 11-01-2024 End: 12-01-2024 take 1 tablet by mouth three times daily as needed for anxiety hydrOXYzine HCl (Atarax) 25 MG tablet Indications: Adjustment disorder with anxiety Take 1 tablet (25 mg) by mouth 3 (three) times a day as needed for anxiety 90 tablet 11/01/2024 Active predniSONE 10 mg oral tablet (1 source) Start: 05-16-2024 End: 06-01-2024 take 4 tablets by mouth once daily, then take 3 tablets by mouth once daily, then take 2 tablets by mouth once daily, then take 1 tablet by mouth once daily predniSONE (Deltasone) 10 MG tablet Indications: Allergic dermatitis Take 4 tablets (40 mg) by mouth Daily for 4 days, THEN 3 tablets (30 mg) Daily for 4 days, THEN 2 tablets (20 mg) Daily for 4 days, THEN 1 tablet (10 mg) Daily for 4 days. 40 tablet 05/16/2024 06/01/2024 Active sertraline 100 mg oral tablet (2 sources) Serotonin Reuptake Inhibitor Start: 10-18-2023 take 1 tablet by mouth once daily sertraline (Zoloft) 100 MG tablet Indications: Major depressive disorder, single episode, unspecified (CMS/HCC) TAKE 1 TABLET BY MOUTH EVERY DAY FOR 90 DAYS 90 tablet 3 10/18/2023 Active Start: 10-18-2023 take 1 tablet by maureen once daily sertraline (Zoloft) 50 MG tablet Indications: Major depressive disorder, single episode, unspecified (CMS/HCC) TAKE 1 TABLET BY MOUTH EVERY DAY 90 tablet 3 10/18/2023 Active Completed/Discontinued Medications Medication Drug Class(es) Dates Sig (Normalized) Sig (Original) busPIRone hydrochloride 5 mg oral tablet (8 sources) Start: 02-05-2024 End: 09-12-2024 take 1 tablet by mouth in the morning busPIRone (Buspar) 5 MG tablet Indications: Adjustment disorder with anxiety (CMS/HCC) Take 1 tablet (5 mg) by mouth in the morning and 1 tablet (5 mg) before bedtime. 60 tablet 3 02/05/2024 09/12/2024 Discontinued (Side effects) Desogestrel / Ethinyl Estradiol (20 sources) Progestin, Estrogen Start: 05-06-2024 End: 11-21-2024 take 1 tablet by mouth once daily Kariva 0.15-0.02/0.01 MG (19/02) tablet Indications: Intractable menstrual migraine without status migrainosus (CMS/HCC) TAKE 1 TABLET BY MOUTH EVERY DAY SKIP PLACEBO WEEK 112 tablet 2 05/06/2024 11/21/2024 Discontinued (Side effects) Start: 05-06-2024 End: 11-21-2024 desogestrel-ethinyl estradio l (Kariva) 0.15-0.02/0.01 MG (19/02) tablet Indications: Intractable menstrual migraine without status migrainosus (CMS/HCC) TAKE 1 TABLET BY MOUTH EVERY DAY SKIP PLACEBO WEEK for 90 days 90 tablet 3 05/06/2024 11/21/2024 Discontinued (Side effects) Start: 05-06-2024 take 1 tablet by maureen th once daily Kariva 0.15-0.02/0.01 MG (/) tablet Indications: Intractable menstrual migraine without status migrainosus (CMS/HCC) TAKE 1 TABLET BY MOUTH EVERY DAY SKIP PLACEBO WEEK 112 tablet 2 05/06/2024 Active Start: 05-06-2024 desogestrel-et hinyl estradiol (Kariva) 0.15-0.02/0.01 MG (/) tablet Indications: Intractable menstrual migraine without status migrainosus (CMS/HCC) TAKE 1 TABLET BY MOUTH EVERY DAY SKIP PLACEBO WEEK for 90 days 90 tablet 3 05/06/2024 Active Start: 08-29-2023 take 1 tablet by maureen th once daily Kariva 0.15-0.02/0.01 MG (19/02) tablet Indications: Intractable menstrual migraine without status migrainosus (CMS/HCC) TAKE 1 TABLET BY MOUTH EVERY DAY SKIP PLACEBO WEEK for 90 days 90 tablet 3 08/29/2023 Active 168 hr ethinyl estradiol 0.61443 mg/hr / norelgestromin 0.75558 mg/hr transdermal system (9 sources) Progestin, Estrogen Start: 11-21-2024 End: 11-21-2025 apply 1 dose transdermal route every week norelgestromin-ethinyl estradiol (Ortho-Evra) 150-35 MCG/24HR Indications: control counseling APPLY 1 PATCH WEEKLY FOR 3 WEEKS THEN REMOVE FOR 1 WEEK 3 patch 12 12/25/2024 05/01/2025 Discontinued Problems Problem Classification Problem Date Documented Date Episodic/Chronic Adjustment disorders (20 sources) Adjustment disorder with anxious mood; Translations: [Adjustment disorder with anxiety] Onset: 04-24-2023 04-24-2023 Chronic Asthma (1 source) Exercise-induced asthma; Translations: [Exercise induced bronchospasm] 12-12-2024 Chronic Attention-deficit, conduct, and disruptive behavior disorders (20 sources) Attention deficit hyperactivity disorder; Translations: [Attention-deficit hyperactivity disorder, unspecified type] Onset: 04-24-2023 04-24-2023 Chronic Attention-deficit, conduct, and disruptive behavior disorders (13 sources) Attention deficit hyperactivity disorder, combined type; Translations: [Attention-deficit hyperactivity disorder, combined type] 07-30-2024 Chronic Attention-deficit, conduct, and disruptive behavior disorders (2 sources) Attention deficit hyperactivity disorder, predominantly inattentive type; Translations: [Attention-deficit hyperactivity disorder, predominantly inattentive type] 09-12-2024 Chronic Cancer of cervix (3 sources) Atypical squamous cells of undetermined significance on cervical Papanicolaou smear; Translations: [Atypical squamous cells of undetermined significance on cytologic smear of cervix (ASC-US)] 11-02-2023 Episodic Contraceptive and procreative management (1 source) Patient encounter status; Translations: [Encounter for other general counseling and advice on contraception] 11-21-2024 Episodic Headache; including migraine (20 sources) Menstrual migraine; Translations: [Menstrual migraine, intractable, without status migrainosus] Onset: 04-24-2023 04-24-2023 Chronic Mood disorders (20 sources) Major depression, single episode; Translations: [Major depressive disorder, single episode, unspecified] Onset: 04-24-2023 04-24-2023 Chronic Other skin disorders (1 source) Acne vulgaris; Translations: [Acne vulgaris] 11-20-2024 Episodic Results Test Name Value Interpretation Reference Range Facility PAP IG, APT HPV RFX 16/18,45 on 05-22-2024 HPV APTIMA Negative Negative [facility] Comment on above: This nucleic acid am plification test detects fourteen high- risk HPV types (16,18,31,33,35,39,45,51,52,56,58,59,66,68) without differentiation. Performed at: [address] [id number] Bi Manager: Bety Caceres MD, Phone: [phone] Performed at: =[address] [id number] Bi Manager: Bety Caceres MD, Phone: [phone] Interpretation and review of laboratory results Abnormal [facility] PAP IG (IMAGE GUIDED) Note Abnormal . [facility] Comment on above: TESTS RESULT FLAG U NITS REF RANGE LAB Clinician Provided Cytology Information Source.............Cervix;Endocervix No. of containers..01 ThinPrep Vial DIAGNOSIS: [A] 01 EPITHELIAL CELL ABNORMALITY. ATYPICAL SQUAMOUS CELLS OF UNDETERMINED SIGNIFICANCE (ASC-US). Recommendation: [A] 01 Suggest follow up as clinically appropriate. Specimen adequacy: 01 Satisfactory for evaluation. Endocervical and/or squamous metaplastic cells (endocervical component) are present. Performed by: Winsome Reynolds, Costuming Supervisor (ASC) Electronically si... Bety Caceres MD, Pathologist . 01 Pathologist ICD10: R87.610 Note: Note 01 The Pap smear is a screening test designed to aid in the detection of premalignant and malignant conditions of the uterine cervix. It is not a diagnostic procedure and should not be used as the sole means of detecting cervical cancer. Both false-positive and false-negative reports do occur. Test Methodology: Note 01 This liquid based ThinPrep(R) pap test was screened with the use of an image guided system. HPV Genotype Reflex Note 01 Criteria not met, HPV Genotype not performed. FLAG LEGEND: L-Low Normal,H-High Normal,LL-Alert Low,HH-Alert High <-Panic Low,>-Panic High,A-Abnormal,AA-Critical Abnormal Performed at: 01 [facility] [address] [id number] Bety Caceres MD, 02 KWCYT [facility] [place] [facility] [id number] [place] [id number] Edward Chavarria MD, SPATULA-ALONE CERVIX [facility]IX [facility] Vital Signs Date Time Vital Sign Value Performing Clinician Luciana valenzuela 05-15-2025 09:08-0400 Body mass index (BMI) [Ratio] 28.34 kg/m2 Toni Fatuma DO Work Phone: [facility] 05-15-2025 09:08-0400 Body weight 84.55 kg Toni Fatuma DO Work Phone: [facility] 05-15-2025 09:08-0400 Diastolic blood pressure 80 mm[Hg] Toni Fatuma DO Work Phone: [facility] 05-15-2025 09:08-0400 Systolic blood pressure 130 mm[Hg] Toni Fatuma DO Work Phone: [facility] 05-01-2025 15:50-0400 Body height 172.7 cm Belkys Raymond SCALE INSTALLER Work Phone: [facility] 05-01-2025 15:50-0400 Body mass index (BMI) [Ratio] 28.43 kg/m2 Belkys Raymond SCALE INSTALLER Work Phone: [facility] 05-01-2025 15:50-0400 Body weight 84.82 kg Belkys Raymond SCALE INSTALLER Work Phone: [facility] 05-01-2025 15:50-0400 Diastolic blood pressure 72 mm[Hg] Belkys Raymond SCALE INSTALLER Work Phone: [facility] 05-01-2025 15:50-0400 Heart rate 78 /min Belkys Raymond SCALE INSTALLER Work Phone: [facility] 05-01-2025 15:50-0400 Respiratory rate 16 /min Belkys Raymond SCALE INSTALLER Work Phone: [facility] 05-01-2025 15:50-0400 SaO2% (BldA) [Mass fraction] 99 % Belkys Raymond SCALE INSTALLER Work Phone: [facility] 05-01-2025 15:50-0400 Systolic blood pressure 120 mm[Hg] Belkys Raymond SCALE INSTALLER Work Phone: [facility] 09-12-2024 15:25-0500 Body height 172.7 cm Belkys Raymond SCALE INSTALLER Work Phone: [facility] 09-12-2024 15:25-0500 Body mass index (BMI) [Ratio] 34.79 kg/m2 Belkys Raymond SCALE INSTALLER Work Phone: [facility] 09-12-2024 15:25-0500 Body weight 103.78 kg Belkys Raymond SCALE INSTALLER Work Phone: [facility] 09-12-2024 15:25-0500 Diastolic blood pressure 84 mm[Hg] Belkys Raymond SCALE INSTALLER Work Phone: [facility] 09-12-2024 15:25-0500 Heart rate 113 /min Belkys Raymond SCALE INSTALLER Work Phone: [facility] 09-12-2024 15:25-0500 Respiratory rate 17 /min Belkys Raymond SCALE INSTALLER Work Phone: [facility] 09-12-2024 15:25-0500 SaO2% (BldA) [Mass fraction] 98 % Belkys Raymond SCALE INSTALLER Work Phone: [facility] 09-12-2024 15:25-0500 Systolic blood pressure 136 mm[Hg] Belkys Raymond SCALE INSTALLER Work Phone: [facility] 11-08-2023 13:07-0500 Body mass index (BMI) [Ratio] 35.43 kg/m2 Toni Fatuma DO Work Phone: [facility] 11-08-2023 13:07-0500 Body weight 105.69 kg Toni Fatuma DO Work Phone: [facility] 11-08-2023 13:07-0500 Diastolic blood pressure 82 mm[Hg] Toni Fatuma DO Work Phone: [facility] 11-08-2023 13:07-0500 Systolic blood pressure 128 mm[Hg] Toni Fatuma DO Work Phone: [facility] Encounters Encounter Date Encounter Type Care Provider Facility Start: 05-15-2025 End: 05-15-2025 Bamboo flowsheet Toni Hardyo DO Work Phone: [facility] Start: 05-15-2025 End: 05-15-2025 Bamboo flowsheet Toni Hardyo DO Work Phone: [facility] Start: 05-15-2025 End: 05-15-2025 Patient encounter procedure Toni Hardyo DO Work Phone: [facility] Work Phone: Start: 05-15-2025 End: 05-15-2025 Periodic preventive med est patient 18-39 yrs Toni Burris DO Work Phone: [facility] Comment on above: Well woman exam with routine gynecological exam; Atypical squamous cell changes of undetermined significance (ASCUS) on cervical cytology with negative high risk human papilloma virus (HPV) test result Start: 05-01-2025 End: 05-01-2025 Office outpatient visit 25 minutes Belkys Raymond SCALE INSTALLER Work Phone: [facility] [place] [facility] Comment on above: Attention deficit hy peractivity disorder (ADHD), combined type Start: 05-01-2025 End: 05-01-2025 Bamboo flowsheet Belkys Raymond SCALE INSTALLER Work Phone: [facility] [place] [facility] Start: 05-01-2025 End: 05-01-2025 Bamboo flowsheet Belkys Raymond SCALE INSTALLER Work Phone: [facility] [place] [facility] Start: 05-01-2025 End: 05-02-2025 Refill Belkys Raymond SCALE INSTALLER Work Phone: [facility] [place] [facility] Comment on above: Attention deficit hy peractivity disorder (ADHD), combined type Start: 04-03-2025 End: 04-03-2025 Refill Julia Dominguez PA Work Phone: [facility] Comment on above: Attention deficit hy peractivity disorder (ADHD), combined type Start: 03-17-2025 End: 03-17-2025 Orders Only Belkys Raymond SCALE INSTALLER Work Phone: [facility] Comment on above: Major depressive dis order, single episode, mild (Primary Dx) Start: 03-06-2025 End: 03-06-2025 Refill Belkys Raymond SCALE INSTALLER Work Phone: [facility] Comment on above: Attention deficit hy peractivity disorder (ADHD), combined type (CMS/HCC) Start: 01-26-2025 End: 01-27-2025 Refill Belkys Raymond SCALE INSTALLER Work Phone: [facility] Comment on above: Attention deficit hy peractivity disorder (ADHD), combined type (CMS/HCC) Start: 12-12-2024 End: 12-12-2024 Orders Only Belkys Raymond SCALE INSTALLER Work Phone: [facility] Comment on above: Exercise-induced ast hma (CMS/HCC) (Primary Dx) Start: 11-21-2024 End: 11-21-2024 Orders Only Belkys Raymond SCALE INSTALLER Work Phone: [facility] Comment on above: control counse ling (Primary Dx) Start: 11-19-2024 End: 11-20-2024 Refill Belkys Raymond SCALE INSTALLER Work Phone: [facility] Comment on above: Acne vulgaris (Prima ry Dx); Attention deficit hyperactivity disorder (ADHD), combined type (CMS/HCC) Start: 11-01-2024 End: 11-01-2024 Orders Only Belkys Raymond SCALE INSTALLER Work Phone: [facility] Comment on above: Adjustment disorder with anxiety (CMS/HCC) (Primary Dx) Start: 10-22-2024 End: 10-22-2024 Orders Only Belkys Raymond SCALE INSTALLER Work Phone: [facility] Comment on above: Attention deficit hy peractivity disorder (ADHD), combined type (CMS/HCC) Start: 10-21-2024 End: 10-22-2024 Refill Margarita Monday NETBACKUP ADMINISTRATOR Work Phone: [facility] Comment on above: Attention deficit hy peractivity disorder (ADHD), combined type (CMS/HCC) Start: 09-12-2024 End: 09-12-2024 Office outpatient visit 15 minutes Belkys Raymond SCALE INSTALLER Work Phone: [facility] Comment on above: Attention deficit hy peractivity disorder (ADHD), predominantly inattentive type (CMS/HCC) (Primary Dx) Start: 09-12-2024 End: 09-12-2024 Bamboo flowsheet Belkys Raymond SCALE INSTALLER Work Phone: [facility] Start: 09-12-2024 End: 09-12-2024 Bamboo flowsheet Belkys Raymond SCALE INSTALLER Work Phone: [facility] Start: 09-02-2024 End: 09-02-2024 Refill Margarita Monday NETBACKUP ADMINISTRATOR Work Phone: [facility] Comment on above: Attention deficit hy peractivity disorder (ADHD), combined type (CMS/HCC) (Primary Dx) Start: 07-31-2024 End: 07-31-2024 Orders Only Belkys Raymond SCALE INSTALLER Work Phone: [facility] Comment on above: Major depressive dis order, single episode, mild (HCC) (CMS/HCC) (Primary Dx) Start: 07-30-2024 End: 07-30-2024 Refill Margarita Monday NETBACKUP ADMINISTRATOR Work Phone: [facility] Comment on above: Attention deficit hy peractivity disorder (ADHD), combined type (CMS/HCC) Start: 06-26-2024 End: 06-26-2024 Orders Only Belkys Raymond SCALE INSTALLER Work Phone: [facility] Comment on above: Attention deficit hy peractivity disorder (ADHD), combined type (CMS/HCC) Start: 05-27-2024 End: 05-31-2024 Refill Julia Dominguez PA Work Phone: [facility] Comment on above: Attention deficit hy peractivity disorder (ADHD), combined type (CMS/HCC) Start: 05-14-2024 End: 05-22-2024 [facility] Result Encounter Toni Fatuma DO Work Phone: [facility] Unsolicited Start: 05-14-2024 End: 05-22-2024 Clinisync Result Encounter Toni Fatuma DO Work Phone: [facility]solic[facility] Start: 11-08-2023 End: 11-08-2023 Office outpatient new 20 minutes Toni Fatuma DO Work Phone: [facility] Comment on above: ASCUS of cervix with negative high risk HPV Procedures Date Procedure Procedure Detail Performing Clinician Start: 05-14-2024 PAP IG, APT HPV RFX 16/18,45 Toni Fatuma DO Work Phone: Plan of Treatment Date Care Activity Detail Author Start: 05-19-2026 End: 05-19-2026 Patient encounter procedure 05/19/2026 9:00 AM EDT Procedure Visit [facility] [address] [place] [place] [id number] Fatuma Toni, DO [address] [place] [address] [facility] Start: 06-02-2025 Influenza vaccination Influenza Vacc ine (#1) [facility] Start: 05-15-2025 End: 05-15-2025 Patient encounter procedure [facility] Comment on above: Arrived Start: 05-01-2025 End: 05-01-2025 Patient encounter procedure 05/01/2025 4:00 PM EDT Office Visit [facility] [place] [facility] [address] [place] [address] [place] [phone] Belkys Raymond NP [address] [place] [address] [place] [address] Arrived [facility] [facility] Comment on above: Arrived Start: 04-03-2025 End: 04-03-2025 Patient encounter procedure 04/03/2025 4:00 PM EDT Office Visit [facility] [address] [facility] [address] [place] [address] Belkys Raymond NP [address] [place] [address] [facility] Start: 12-18-2024 End: 12-18-2024 Patient encounter procedure 12/18/2024 8:30 AM EDT Office Visit [facility] [address] [facility] [address] [place] [address] Belkys Raymond, SCALE INSTALLER [address] [facility] [address] [place] [address] [facility] Start: 09-12-2024 End: 09-12-2024 Patient encounter procedure [facility] Comment on above: Arrived Start: 06-02-2024 Influenza vaccination Influenza Vacc ine (#1) [facility] Start: 05-14-2024 End: 05-14-2024 Patient encounter procedure 05/14/2024 8:30 AM EDT Procedure Visit [facility] [address] [place] [phone] Toni Burris DO [address] [facility] [address] [facility] [address] [place], [place] [id number] [facility] Start: 03-31-2024 Influenza vaccination Influenza Vacc ine (#1) [facility] Comment on above: Postponed from 06/02 (Other Patient Reasons) Cytology Cervical or vaginal smear or scraping study Pap Smear Pathology and Cytology Routine Well woman exam with routine gynecological exam Ordered: 05/15/2025 [facility] Work Phone: Comment on above: Ordered: 05/15/2025 Immunizations Immunization Date Immunization Notes Care Provider Fa [facility] 10-13-2024 influenza, injectabl e, madin deanne canine kidney, preservative free Belkys Raymond SCALE INSTALLER Work Phone: [facility] 10-13-2024 influenza virus vacc ine, unspecified formulation Julia Hemmer PA Work Phone: [facility] 10-14-2021 Pfizer Purple Cap SARS-CoV-2 Vaccination Toni Fatuma DO Work Phone: [facility] 10-01-2021 Influenza, injectabl e, Madin [place] Canine Kidney, preservative free, quadrivalent Toni Fatuma DO Work Phone: [facility] 10-01-2021 influenza virus vacc ine, unspecified formulation Toni Fatuma DO Work Phone: [facility] 02-04-2021 Edwige SARS-CoV-2 Toni Gibran io DO Work Phone: [facility] 05-19-2017 hepatitis B vaccine, adult dosage Toni Fatuma DO Work Phone: [facility] 05-19-2017 meningococcal oligosaccharide (groups A, C, Y and W-135) diphtheria toxoid conjugate vaccine (MCV4O) Toni Fatuma DO Work Phone: [facility] - diphtheria, tetanus toxoids and acellular pertussis vaccine Toni Fatuma DO Work Phone: [facility] 06-16-2004 measles, mumps and r ubella virus vaccine Toni Fatuma DO Work Phone: [facility] 06-16-2004 poliovirus vaccine, inactivated Toni Fatuma DO Work Phone: [facility] 09-18-2001 diphtheria, tetanus toxoids and acellular pertussis vaccine, unspecified formulation Toni Fatuma DO Work Phone: [facility] 09-18-2001 haemophilus influenz ae type b conjugate and Hepatitis B vaccine Toni Fatuma DO Work Phone: [facility] 08-07-2000 measles, mumps and r ubella virus vaccine Toni Fatuma DO Work Phone: [facility] 08-07-2000 pneumococcal conjuga te vaccine, 7 valent Toni Fatuma DO Work Phone: [facility] 06-23-2000 hepatitis B vaccine, pediatric or pediatric/adolescent dosage Toni Fatuma DO Work Phone: [facility] 06-22-2000 pneumococcal conjuga te vaccine, 7 valent Toni Fatuma DO Work Phone: [facility] 06-22-2000 varicella virus vaccine Core y Fatuma DO Work Phone: [facility] 01-18-2000 poliovirus vaccine, inactivated Toni Fatuma DO Work Phone: [facility] 01-17-2000 diphtheria, tetanus toxoids and acellular pertussis vaccine Toni Fatuma DO Work Phone: [facility] 01-17-2000 haemophilus influenz ae type b vaccine, conjugate unspecified formulation Toni Fatuma DO Work Phone: [facility] 01-17-2000 hepatitis B vaccine, pediatric or pediatric/adolescent dosage Toni Fatuma DO Work Phone: [facility] 1999 diphtheria, tetanus toxoids and acellular pertussis vaccine Toni Fatuma DO Work Phone: [facility] 1999 haemophilus influenz ae type b vaccine, conjugate unspecified formulation Toni Fatuma DO Work Phone: [facility] 1999 poliovirus vaccine, inactivated Toni Fatuma DO Work Phone: [facility] 1999 diphtheria, tetanus toxoids and acellular pertussis vaccine Toni Fatuma DO Work Phone: [facility] 1999 haemophilus influenz ae type b vaccine, conjugate unspecified formulation Toni Fatuma DO Work Phone: [facility] 1999 poliovirus vaccine, inactivated Toni Fatuma DO Work Phone: [facility] Payers Date Payer Category Payer [facility] Care O (unspecified) [id number] Social History Date Type Detail Facility Start: 04-24-2023 End: 02-05-2024 Tobacco smoking status NHIS Never smoked tobacco [facility] Start: 04-24-2023 End: 02-05-2024 Tobacco use and exposure Smokeless tobacco non-user [facility] Start: 11-08-2023 Alcohol intake Lifetime non-d natan (finding) [facility] Start: 09-12-2023 End: 12-17-2024 History of Social function [facility] Start: 09-12-2023 End: 12-17-2024 Humiliation, Afraid, Rape, and Kick questionnaire [HARK] [facility] Within the last year , have you been afraid of your partner or ex-partner? No [facility] Attends [employer] Not on file [facility] Are you now , , , , never or living with a partner? Never [facility] How often to you hav e a drink containing alcohol? Monthly or less [facility] How many standard dr inks containing alcohol do you have on a typical day? 1 or 2 [facility] How often do you hav e 6 or more drinks on 1 occasion? Never [facility] How hard is it for y ou to pay for the very basics like food, housing, medical care, and heating Not very hard [facility] Do you feel stress - tense, restless, nervous, or anxious, or unable to sleep at night because your mind is troubled all the time - these days [OSQ] Very much [facility] (I/We) worried wheth er (my/our) food would run out before (I/we) got money to buy more. Never true [facility] Start: 1999 Sex Assigned At Not on file [facility] Start: 04-26-2023 Gender identity Identifies as female gender (finding) [facility] Start: 05-14-2024 End: 05-15-2025 Alcoholic beverage intake Current drinker of alcohol (finding) [facility] Start: 02-05-2024 Tobacco Comment Never used [facility] Start: 02-05-2024 Alcohol Comment Once a month o r less socially [facility] Are you now , , , , never or living with a partner? Living with partner [facility] Do you feel stress - tense, restless, nervous, or anxious, or unable to sleep at night because your mind is troubled all the time - these days [OSQ] Only a little [facility] (I/We) worried wheth er (my/our) food would run out before (I/we) got money to buy more. Sometimes true [facility] Functional Status Date Assessment Result Facility 05-01-2025 Patient Health Quest ionnaire 2 item (PHQ-2) [Reported] [facility] Clinical Notes 11-08-2023 to 05-15-2025 Britt Modi LPN - 05/15/2025 9:00 AM EDTTelephone Encounter - MARY Jordan - 05/02/2025 9:50 AM EDTTelephone Encounter - MARY Jordan - 05/02/2025 9:50 AM EDT Note Date & Type Note Facility 05-15-2025 History of Presen t illness Narrative Reason for Appointment: Patient ID: Ying Islas is a 24 y.o. female who presents for [facility] Women Visit Patient presents today for Annual Exam. MEDICATIONS Current Outpatient Medications Medication Instructions adapalene (Differin) 0.3 % gel Topical, Nightly albuterol HFA (Ventolin HFA) 90 mcg/act inhaler 2 puffs, Inhalation, Every 4 hours PRN amphetamine-dextroamphetamine (Adderall) 10 MG tablet 10 mg, Oral, Daily, Take with the 20mg tab in the [...] 2014 Anxiety 2016 Depression 2016 Menstrual migraine HISTORY PAST MEDICAL HISTORY SOCIAL HISTORY Past Medical History: Diagnosis Date ADHD (attention deficit hyperactivity disorder) Allergic 2014 Anxiety 2016 Depression 2016 Menstrual migraine Social [...] nursing note reviewed. Exam conducted with a certified professional ergonomist present. Vitals: Estimated body mass index is 28.34 kg/m as calculated from the following: Height as [...] Toni Burris DO documented in this encounter [facility] 05-02-2025 Telephone encount er Note OARRS reviewed, Rx sent into patient's pharmacy. [facility] 05-02-2025 Miscellaneous Notes Formattin g of this note might be different from the original. OARRS reviewed, Rx sent into patient's pharmacy. documented in this encounter [facility] 05-01-2025 History of Presen t illness Narrative Images from the original note were not [...] REMOVE FOR 1 WEEK 3 patch 12 No [...] Call office for worsening of symptoms. Per [facility] regulations, follow ups have to occur every 3 months. You verbalized understanding of these rules in order for us to continue filling medications. OARRS/PDMP reviewed without concern. Safe filling and storage of medications discussed with patient. Controlled status of medication discussed with patient. No follow-ups on file. documented in this encounter [facility] 04-03-2025 Telephone encount er Note OARRS reviewed, Rx sent into patient's pharmacy. [facility] 04-03-2025 Miscellaneous Notes Formattin g of this note might be different from the original. OARRS reviewed, Rx sent into patient's pharmacy. documented in this encounter [facility] 03-17-2025 History of Presen t illness Narrative Pr needed Wellbutrin refilled documented in this encounter [facility] 03-06-2025 Telephone encount er Note Lvm [facility] 03-06-2025 Miscellaneous Notes Formattin g of this note might be different from the original. Lvm Please help pt get set up for controlled medication follow up towards the end of this month. OARRS reviewed, Rx sent into patient's pharmacy. documented in this encounter [facility] 03-06-2025 Telephone encount er Note Please help pt get set up for controlled medication follow up towards the end of this month. OARRS reviewed, Rx sent into patient's pharmacy. [facility] 10-22-2024 Telephone encount er Note OARRS reviewed, Rx sent into patient's pharmacy. [facility] 10-22-2024 Miscellaneous Notes Formattin g of this note might be different from the original. OARRS reviewed, Rx sent into patient's pharmacy. documented in this encounter [facility] 09-12-2024 History of Presen t illness Narrative Images from the original note were not included. Subjective Patient ID: Ying Islas is a 24 y.o. female who presents for Medication F/U Ying presents today for medication F/U. ADHD This is a chronic problem. The current episode started more than 1 year ago. The problem occurs rarely. The problem has been unchanged. Associated symptoms include headaches. Nothing aggravates the symptoms. She has tried nothing for the symptoms. The treatment provided significant relief. Current Outpatient Medications on File Prior to Visit Medication Sig Dispense Refill amphetamine-dextroamphetamine (Adderall) 20 MG tablet Take 1 tablet (20 mg) by mouth in the morning and 1 tablet (20 mg) before bedtime. Do all this for 14 days. 28 tablet 0 buPROPion XL (Wellbutrin XL) 300 MG 24 hr tablet Take 1 tablet (300 mg) by mouth Daily Do not crush, chew, or split. 90 tablet 3 busPIRone (Buspar) 5 MG tablet Take 1 tablet (5 mg) by mouth in the morning and 1 tablet (5 mg) before bedtime. 60 tablet 3 desogestrel-ethinyl estradiol (Kariva) 0.15-0.02/0.01 MG (19/02) tablet TAKE 1 TABLET BY MOUTH EVERY DAY SKIP PLACEBO WEEK for 90 days 90 tablet 3 ferrous sulfate 325 (65 Fe) MG EC tablet Take 1 tablet (325 mg) by mouth in the morning and 1 tablet (325 mg) at noon and 1 tablet (325 mg) in the evening. Take with meals. Do not crush, chew, or split.. 90 tablet 2 Kariva 0.15-0.02/0.01 MG (19/02) tablet TAKE 1 TABLET BY MOUTH EVERY DAY SKIP PLACEBO WEEK 112 tablet 2 No current facility-administered medications on file prior to visit. I have reviewed and reconciled the history and medication list with the patient today. Allergies Allergen Reactions Fluconazole Rash Social History Tobacco Use Smoking status: Never Smokeless tobacco: Never Tobacco comments: Never used Vaping Use Vaping status: Every Day Substance Use Topics Alcohol use: Yes Comment: Once a month or less socially Drug use: Not Currently Types: Marijuana Comment: 1/2 a year socially Family History Problem Relation Name Age of Onset Diabetes Father Ibrahima Islas Past Medical History: Diagnosis Date ADHD (attention deficit hyperactivity disorder) ([facility]) Allergic 2014 Anxiety 2016 Depression ([facility]) 2016 Menstrual migraine ([facility]) Past Surgical History: Procedure Laterality Date TYMPANOSTOMY TUBE PLACEMENT at age 1 Visit Vitals Ht 5' 8 BMI 35.73 kg/m Smoking Status Never BSA 2.27 m Review of Systems Constitutional: Weight loss due to eating healthier HENT: Negative. Eyes: Negative. Respiratory: Negative. Cardiovascular: Negative. Gastrointestinal: Negative. Genitourinary: Negative. Musculoskeletal: Negative. Skin: Negative. Neurological: Positive for headaches. Psychiatric/Behavioral: Negative. Endocrine: Negative. Objective Physical Exam Vitals reviewed. Constitutional: Appearance: Normal appearance. HENT: Head: Normocephalic. Mouth/Throat: Mouth: Mucous membranes are moist. Cardiovascular: Rate and Rhythm: Normal rate. Pulmonary: Effort: Pulmonary effort is normal. Skin: General: Skin is warm and dry. Neurological: General: No focal deficit present. Mental Status: She is alert and oriented to person, place, and time. Psychiatric: Mood and Affect: Mood normal. Behavior: Behavior normal. Thought Content: Thought content normal. Judgment: Judgment normal. Assessment/Plan 1. Attention deficit hyperactivity disorder (ADHD), predominantly inattentive type (CMS/HCC) (Primary) Medication choice and dosage is appropriate for patient's current medical conditions. Patient will continue to be required to be seen in our office at least every three months for monitoring. At each follow up visit I will reassess the patient's need for the medication. Patient is to have this medication prescribed only through this office. Failure to follow the rules and regulations will result in tapering and discontinuation of medications if applicable. Patient verbalized understanding. OARRS Report was reviewed for this patient. Continue with current drug therapy. Call office for worsening of symptoms. Per [facility] regulations, follow ups have to occur every 3 months. You verbalized understanding of these rules in order for us to continue filling medications. OARRS/PDMP reviewed without concern. Safe filling and storage of medications discussed with patient. Controlled status of medication discussed with patient. No follow-ups on file. documented in this encounter [facility] 09-02-2024 Telephone encount er Note Patient scheduled [facility] 09-02-2024 Miscellaneous Notes Formattin g of this note might be different from the original. Patient scheduled Patient is a month overdue for routine follow up appt. 2 Week supply sent in for pt. Please help her get set up for an appt within the next two weeks. OARRS reviewed, Rx sent into patient's pharmacy. documented in this encounter [facility] 09-02-2024 Telephone encount er Note Patient is a month overdue for routine follow up appt. 2 Week supply sent in for pt. Please help her get set up for an appt within the next two weeks. OARRS reviewed, Rx sent into patient's pharmacy. [facility] 05-31-2024 Telephone encount er Note OARRS reviewed, Rx sent into patient's pharmacy. [facility] 05-31-2024 Miscellaneous Notes Formattin g of this note might be different from the original. OARRS reviewed, Rx sent into patient's pharmacy. Mistake documented in this encounter [facility] 05-30-2024 Telephone encount er Note Mistake [facility] 11-08-2023 History of Presen t illness Narrative Reason for Appointment: Patient ID: Ying Islas is a 23 y.o. female who presents for Abnormal Pap Smear Patient presents today for Acute Visit appointment. Current Medications: has a current medication list which includes the following prescription(s): amphetamine-dextroamphetamine, ferrous sulfate, kariva, sertraline, and sertraline. Medical History: Active Ambulatory Problems Diagnosis Date Noted Adjustment disorder with anxiety (CMS/HCC) 04/24/2023 Attention deficit hyperactivity disorder (CMS/HCC) 04/24/2023 Intractable menstrual migraine without status migrainosus ([facility]) 04/24/2023 Major depressive disorder, single episode, unspecified ([facility]) 04/24/2023 Resolved Ambulatory Problems Diagnosis Date Noted No Resolved Ambulatory Problems Past Medical History: Diagnosis Date Allergic 2014 Anxiety 2016 Depression ([facility]) 2016 Menstrual migraine ([facility]) Family History Family history unknown: Yes Social History Tobacco Use Smoking status: Never Smokeless tobacco: Never Substance Use Topics Alcohol use: Never Drug use: Never Past Surgical History: Procedure Laterality Date TYMPANOSTOMY TUBE PLACEMENT at age 1 Allergies Allergen Reactions Fluconazole Rash Review of Systems: Review of Systems Constitutional: Negative. HENT: Negative. Eyes: Negative. Respiratory: Negative. Cardiovascular: Negative. Gastrointestinal: Negative. Genitourinary: Negative. Musculoskeletal: Negative. Skin: Negative. Neurological: Negative. All other systems reviewed and are negative. Hematological: Negative. Endocrine: Negative. Allergic/Immunologic: Negative. Objective Physical Exam Constitutional: Appearance: Normal appearance. She is well-developed. Cardiovascular: Rate and Rhythm: Normal rate and [...] nursing note reviewed. Exam conducted with a certified professional ergonomist present. Vitals: Estimated body mass index is 35.43 kg/m as calculated from the following: Height as of 09/26/23: 5' 8 . Weight as of this encounter: 233 lb. BP: 128/82 No LMP recorded. Assessment/Plan Encounter Diagnosis Name Primary? ASCUS of cervix with negative high risk HPV Pt presents for consult regarding abnormal pap. Pap results discussed with pt in great detail. Pt voiced understanding. Discussed all abnormal pap results. Pt to return for repeat pap in 6 months d/t ASCUS. If neg will go back to yearly cycle. Documented by Julia Márquez LPN on behalf of: Toni Burris DO documented in this encounter [facility] Evaluation note Diagnosis ASCUS of cervix with negative high risk HPV [facility]* Diagnosis Attention deficit hyperactivity disorder (ADHD), predominantly inattentive type (CMS/HCC)- Primary Major depressive disorder, single episode, mild (F32.0) Major depressive disorder, single episode, mild Current mild episode of major depressive disorder without prior episode (HCC) (CMS/HCC) Adjustment disorder with anxiety (CMS/HCC) Adjustment disorder with anxiety Attention deficit hyperactivity disorder (ADHD), combined type (CMS/HCC) [facility]* Diagnosis Attention deficit hyperactivity disorder (ADHD), predominantly inattentive type (CMS/HCC)- Primary Major depressive disorder, single episode, mild (F32.0) Major depressive disorder, single episode, mild Current mild episode of major depressive disorder without prior episode (HCC) (CMS/HCC) Adjustment disorder with anxiety (CMS/HCC) Adjustment disorder with anxiety Major depressive disorder, single episode, mild (HCC) (CMS/HCC)- Primary Major depressive disorder, single episode, mild [facility]* Diagnosis Attention deficit hyperactivity disorder (ADHD), predominantly inattentive type (CMS/HCC)- Primary Major depressive disorder, single episode, mild (F32.0) Major depressive disorder, single episode, mild Current mild episode of major depressive disorder without prior episode (HCC) (CMS/HCC) Adjustment disorder with anxiety (CMS/HCC) Adjustment disorder with anxiety Attention deficit hyperactivity disorder (ADHD), combined type (CMS/HCC)- Primary [facility]* Diagnosis Attention deficit hyperactivity disorder (ADHD), predominantly inattentive type (CMS/HCC)- Primary Major depressive disorder, single episode, mild (F32.0) Major depressive disorder, single episode, mild Current mild episode of major depressive disorder without prior episode (HCC) (CMS/HCC) Adjustment disorder with anxiety (CMS/HCC) Adjustment disorder with anxiety Attention deficit hyperactivity disorder (ADHD), predominantly inattentive type (CMS/HCC)- Primary [facility]* Diagnosis Attention deficit hyperactivity disorder (ADHD), combined type (CMS/HCC) [facility]* Diagnosis Attention deficit hyperactivity disorder (ADHD), combined type (CMS/HCC) [facility]* Diagnosis Attention deficit hyperactivity disorder (ADHD), predominantly inattentive type (CMS/HCC)- Primary Major depressive disorder, single episode, mild (F32.0) Major depressive disorder, single episode, mild Current mild episode of major depressive disorder without prior episode (HCC) (CMS/HCC) Adjustment disorder with anxiety (CMS/HCC) Adjustment disorder with anxiety Attention deficit hyperactivity disorder (ADHD), combined type (CMS/HCC) [facility]* Diagnosis Attention deficit hyperactivity disorder (ADHD), predominantly inattentive type (CMS/HCC)- Primary Major depressive disorder, single episode, mild (F32.0) Major depressive disorder, single episode, mild Current mild episode of major depressive disorder without prior episode (HCC) (CMS/HCC) Adjustment disorder with anxiety (CMS/HCC) Adjustment disorder with anxiety Attention deficit hyperactivity disorder (ADHD), combined type (CMS/HCC) [facility]* Diagnosis Attention deficit hyperactivity disorder (ADHD), predominantly inattentive type (CMS/HCC)- Primary Major depressive disorder, single episode, mild (F32.0) Major depressive disorder, single episode, mild Current mild episode of major depressive disorder without prior episode (HCC) (CMS/HCC) Adjustment disorder with anxiety (CMS/HCC) Adjustment disorder with anxiety Adjustment disorder with anxiety (CMS/HCC)- Primary Adjustment disorder with anxiety [facility]* Diagnosis Attention deficit hyperactivity disorder (ADHD), predominantly inattentive type (CMS/HCC)- Primary Major depressive disorder, single episode, mild (F32.0) Major depressive disorder, single episode, mild Current mild episode of major depressive disorder without prior episode (HCC) (CMS/HCC) Adjustment disorder with anxiety (CMS/HCC) Adjustment disorder with anxiety Acne vulgaris- Primary Other acne Attention deficit hyperactivity disorder (ADHD), combined type (CMS/HCC) [facility]* Diagnosis Attention deficit hyperactivity disorder (ADHD), predominantly inattentive type (CMS/HCC)- Primary Major depressive disorder, single episode, mild (F32.0) Major depressive disorder, single episode, mild Current mild episode of major depressive disorder without prior episode (HCC) (CMS/HCC) Adjustment disorder with anxiety (CMS/HCC) Adjustment disorder with anxiety control counseling- Primary [facility]* Diagnosis Attention deficit hyperactivity disorder (ADHD), predominantly inattentive type (CMS/HCC)- Primary Major depressive disorder, single episode, mild (F32.0) Major depressive disorder, single episode, mild Current mild episode of major depressive disorder without prior episode (HCC) (CMS/HCC) Adjustment disorder with anxiety (CMS/HCC) Adjustment disorder with anxiety Exercise-induced asthma (CMS/HCC)- Primary Exercise induced bronchospasm [facility]* Diagnosis Attention deficit hyperactivity disorder (ADHD), predominantly inattentive type (CMS/HCC)- Primary Major depressive disorder, single episode, mild (F32.0) Major depressive disorder, single episode, mild Current mild episode of major depressive disorder without prior episode (HCC) (CMS/HCC) Adjustment disorder with anxiety (CMS/HCC) Adjustment disorder with anxiety Attention deficit hyperactivity disorder (ADHD), combined type (CMS/HCC) [facility]* Diagnosis Attention deficit hyperactivity disorder (ADHD), predominantly inattentive type (CMS/HCC)- Primary Major depressive disorder, single episode, mild (F32.0) Major depressive disorder, single episode, mild Current mild episode of major depressive disorder without prior episode (HCC) (CMS/HCC) Adjustment disorder with anxiety (CMS/HCC) Adjustment disorder with anxiety Attention deficit hyperactivity disorder (ADHD), combined type (CMS/HCC) [facility]* Diagnosis Attention deficit hyperactivity disorder (ADHD), predominantly inattentive type- Primary Major depressive disorder, single episode, mild (F32.0) Major depressive disorder, single episode, mild Current mild episode of major depressive disorder without prior episode Adjustment disorder with anxiety Adjustment disorder with anxiety Major depressive disorder, single episode, mild- Primary Major depressive disorder, single episode, mild [facility]* Diagnosis Attention deficit hyperactivity disorder (ADHD), predominantly inattentive type- Primary Major depressive disorder, single episode, mild (F32.0) Major depressive disorder, single episode, mild Current mild episode of major depressive disorder without prior episode Adjustment disorder with anxiety Adjustment disorder with anxiety Attention deficit hyperactivity disorder (ADHD), combined type documented in this encounter [facility] Diagnosis Attention deficit hyperactivity disorder (ADHD), predominantly inattentive type- Primary Major depressive disorder, single episode, mild (F32.0) Major depressive disorder, single episode, mild Current mild episode of major depressive disorder without prior episode Adjustment disorder with anxiety Adjustment disorder with anxiety Attention deficit hyperactivity disorder (ADHD), combined type documented in this encounter [facility]* Diagnosis Attention deficit hyperactivity disorder (ADHD), predominantly inattentive type- Primary Major depressive disorder, single episode, mild (F32.0) Major depressive disorder, single episode, mild Current mild episode of major depressive disorder without prior episode Adjustment disorder with anxiety Adjustment disorder with anxiety Attention deficit hyperactivity disorder (ADHD), combined type documented in this encounter [facility]* Diagnosis Attention deficit hyperactivity disorder (ADHD), predominantly inattentive type- Primary Major depressive disorder, single episode, mild (F32.0) Major depressive disorder, single episode, mild Current mild episode of major depressive disorder without prior episode Adjustment disorder with anxiety Adjustment disorder with anxiety Well woman exam with routine gynecological exam Routine gynecological examination Atypical squamous cell changes of undetermined significance (ASCUS) on cervical cytology with negative high risk human papilloma virus (HPV) test result documented in this encounter [facility] Additional Source Comments Reason for Visit (unrecogniz ed section and content) Reason Comments Abnormal Pap Smear Reason Onset Date Comments Med Refill 07/30/2024 Reason Onset Date Comments Med Refill 09/02/2024 Reason Onset Date Comments Med Refill 05/27/2024 Reason Onset Date Comments Med Refill 10/21/2024 Reason Onset Date Comments Med Refill 11/19/2024 Reason Onset Date Comments Med Refill 01/26/2025 Reason Onset Date Comments Med Refill 03/06/2025 Reason Onset Date Comments Med Refill 04/03/2025 Reason Onset Date Comments Med Refill 05/01/2025 Reason Comments Well Women Visit Care Teams (unrecognized sec tion and content) Pediatric Oncology Nurse Relationship Specialty Start Date End Date Ly Martin MD [address] [facility] [address] [place] [address] PCP - General Family Medicine 02/07/23 Pediatric Oncology Nurse Relationship Specialty Start Date End Date Ly Martin MD [address] [facility] [address] [place] [address] PCP - General Family Medicine 02/07/23 Pediatric Oncology Nurse Relationship Specialty Start Date End Date Ly Martin MD [address] [facility] [address] [place] [address] PCP - General Family Medicine 02/07/23 Pediatric Oncology Nurse Relationship Specialty Start Date End Date Ly Martin MD [address] [facility] [address] [place] [address] PCP - General Family Medicine 02/07/23 Pediatric Oncology Nurse Relationship Specialty Start Date End Date Ly Martin MD [address] [facility] [address] [place] [address] PCP - General Family Medicine 02/07/23 Pediatric Oncology Nurse Relationship Specialty Start Date End Date Ly Martin MD [address] [facility] [address] [place] [address] PCP - General Family Medicine 02/07/23 Pediatric Oncology Nurse Relationship Specialty Start Date End Date Ly Martin MD [address] [facility] [address] [place] [address] PCP - General Family Medicine 02/07/23 Pediatric Oncology Nurse Relationship Specialty Start Date End Date Ly Martin MD [address] [facility] [address] [place] [address] PCP - General Family Medicine 02/07/23 Pediatric Oncology Nurse Relationship Specialty Start Date End Date Ly Martin MD [address] [facility] [address] [place] [address] PCP - General Family Medicine 02/07/23 Pediatric Oncology Nurse Relationship Specialty Start Date End Date Ly Martin MD [address] [facility] [address] [place] [address] PCP - General Family Medicine 02/07/23 Pediatric Oncology Nurse Relationship Specialty Start Date End Date Ly Martin MD [address] [facility] [address] [place] [address] PCP - General Family Medicine 02/07/23 Pediatric Oncology Nurse Relationship Specialty Start Date End Date Ly Martin MD [address] [facility] [address] [place] [address] PCP - General Family Medicine 02/07/23 FOR RECORDS PERTAINING TO PATIENTS WHO ARE OR HAVE BEEN ENROLLED IN A CHEMICAL DEPENDENCY/SUBSTANCEABUSE PROGRAM, SOME INFORMATION MAY BE OMITTED. This clinical summary was aggregated from multiple sources. Caution should be exercised in using it in the provision of clinical care. This summary normalizes information from multiple sources, and as a consequence, information in this document may materially change the coding, format and clinical context of patient data. In addition, data may be omitted in some cases. CLINICAL DECISIONS SHOULD BE BASED ON THE PRIMARY CLINICAL RECORDS. [facility]. provides no warranty or guarantee of the accuracy or completeness of information in this document.
[2025-05-19 13:08] LABS: Age Gdln ACOG Testing Note (.); IGP, rfx Aptima HPV ASCU Note (.)
== END 2025-05-15 12:34 | disposition home or self-care (01) ==
LOC: LAB 12:33
PROVIDERS: Visit Provider Obstetrics & Gynecology
DX: Z01.419 Encounter for gynecological examination (general) (routine) without abnormal findings (principal)
CPT/HCPCS: 88175